=== PATIENT | female | born 1975 | race Caucasian/White ===

== ENCOUNTER 2017-01-20 03:33 | Emergency (ER) | payer SELFPAY ==
[2017-01-20] MEDS ORDERED: Ativan 1 MG PO ONE (04:06)
[2017-01-20] MEDS ORDERED: Ativan 1 MG ONE (04:11)
--- NOTE | 2017-01-20 04:15 | ERPHSYRPT ---
- History of Present Illness Time Seen by Provider: 01/20/17 04:00 Source: patient Exam Limitations: clinical condition Patient Subjective Stated Complaint: Pt sts hx of bipolar, has been having trouble with anxiety for the last few weeks. Sts anxiety attack has been going on x 4 hours tonight. Sts it is a "mild" one. Sts she wants to get it to stop before she has the urge to drink or "do something else" to get rest. Pt sts hx of overdosing. Pt sts has also been trying hemp oil to help. Pt denies SI/HI today. Triage Nursing Assessment: Pt alert, oriented, answers all questions appropriately. Skin p/w/d, resps non-labored. Pt ambulatory to tx room. Physician History: PATIENT WITH HISTORY OF BIPOLAR DISORDER COMPLAINS OF FEELINGS OF ANXIETY. HAS NO RELIEF WITH HER NEUROTIN. DENIES SUICIDAL OR HOMOCIDAL THOUGHT. DENIES STREET DRUG USE OR ALCOHOL. Timing/Duration: today Severity of Symptoms-Max: moderate Severity of Symptoms-Current: moderate Context related to: living circumstances Suicidal thoughts: other (DENIES THOUGHTS) Associated Symptoms: anxiety Previous symptoms: same symptoms as today Allergies/Adverse Reactions: influenza virus vaccine, specific [influenza virus vacc,specific] Allergy ( Severe, Verified 01/20/17 03:42) Swelling morphine Allergy (Severe, Verified 01/20/17 03:42) Tightness in Chest acetaminophen [From Darvocet-N] Allergy (Intermediate, Verified 01/20/17 03:42) Rash propoxyphene napsylate [From Darvocet-N] Allergy (Intermediate, Verified 03:42) Rash clarithromycin [From Biaxin] Adverse Reaction (Mild, Verified 01/20/17 03:42) Nausea Home Medications: Gabapentin [Neurontin] 600 mg PO TID 01/13/16 [History] Hydrochlorothiazide 25 mg [hydroDIURIL 25 MG] 25 mg PO DAILY 01/13/16 [ History] Lurasidone HCl [Latuda] 60 mg PO HS 01/13/16 [History] Levothyroxine Sodium 25 Mcg [Synthroid 25 Mcg] 50 mcg PO DAILY 07/05/16 [ History] Prazosin HCl [Minipress] 4 mg PO HS 07/05/16 [History] Oxycodone HCl/Acetaminophen [Percocet 10-325 mg Tablet] 1 each PO DAILY [History] Hx Tetanus, Diphtheria Vaccination/Date Given: No Hx Influenza Vaccination/Date Given: No Hx Pneumococcal Vaccination/Date Given: No Immunizations Up to Date: Yes - Past Medical History Pertinent Past Medical History: Yes Neurological History: No Pertinent History ENT History: No Pertinent History Cardiac History: Hypertension Respiratory History: No Pertinent History Endocrine Medical History: No Pertinent History Musculoskeletal History: No Pertinent History GI Medical History: Gallbladder Disease Psycho-Social History: Anxiety, Bipolar, Depression Female Reproductive Disorders: No Pertinent History Other Medical History: UTERINE ABLASION, BARIATRIC SURGERY-RUE AND Y, - Past Surgical History Past Surgical History: Yes Cardiac: No Pertinent History Respiratory: No Pertinent History Gastrointestinal: Cholecystectomy, Other Female Surgical History: Lumpectomy, Other Other Surgical History: UTERINE ABLASION, GASTRIC BYPASS-RUE AN Y. t&a - Social History Smoking Status: Current every day smoker How long have you smoked: 3 months Exposure to second hand smoke: No Alcohol Use: Socially Drug Use: none Patient Lives Alone: No - Female History Hx Last Menstrual Period: 2 weeks ago - Review of Systems Constitutional: No Fever, No Chills Eyes: No Symptoms Ears, Nose, & Throat: No Symptoms Respiratory: No Symptoms, No Cough, No Dyspnea Cardiac: No Symptoms, No Chest Pain, No Edema, No Syncope Abdominal/Gastrointestinal: No Symptoms, No Abdominal Pain, No Nausea, No Vomiting, No Diarrhea Genitourinary Symptoms: No Symptoms, No Dysuria Musculoskeletal: No Symptoms, No Back Pain, No Neck Pain Skin: No Symptoms, No Rash Neurological: No Dizziness, No Focal Weakness, No Sensory Changes Psychological: Anxiety Endocrine: No Symptoms All Other Systems: Reviewed and Negative - Nursing Vital Signs Nursing Vital Signs: Initial Vital Signs Pulse Rate 91 Respiratory Rate 16 Blood Pressure [Right Arm] 122/80 Pain Intensity 0 - Physical Exam General Appearance: no apparent distress Eyes, Ears, Nose, Throat Exam: normal ENT inspection, moist mucous membranes Neck Exam: normal inspection, non-tender, supple Respiratory Exam: normal breath sounds, lungs clear, No respiratory distress Cardiovascular Exam: regular rate/rhythm, No edema Gastrointestinal/Abdominal Exam: soft, No tenderness, No distention Extremities Exam: normal inspection, normal range of motion, No evidence of injury, No edema Peripheral Pulses: carotid (R): 2+, carotid (L): 2+, femoral (R): 2+, femoral (L ): 2+, dorsalis-pedis (R): 2+, dorsalis-pedis (L): 2+ Current Suicidality: denies suicide plan Neurological Exam: alert, calm, financial sales advisor II-XII nml as tested, oriented x 3 Behavior/Eye Contact/Speech: alert & cooperative, cooperative, good eye contact , normal speech Thoughts/Hallucinations: normal thought pattern, no apparent hallucination Skin Exam: normal color, warm, dry, No rash SpO2 Interpretation: normal SpO2: 99 Oxygen Delivery: Room Air Ordered Tests: Medication Summary Discontinued Medications Generic Name Dose Route Start Last Admin Trade Name Freq PRN Reason Stop Dose Admin Lorazepam 1 mg 01/20/17 04:06 Ativan 1 Mg PO 01/20/17 04:07 STAT ONE - Progress Progress: improved Progress Note: 01/20/17 04:17 PATIENT GIVEN ATIVAN 1MG ORALLY Counseled pt/family regarding: diagnosis, need for follow-up - Departure Time of Disposition: 04:30 Departure Disposition: Home Clinical Impression: ANXIETY Condition: Stable Critical Care Time: No Instructions: Anxiety -- Adult Additional Instructions: FOLLOWUP WITH YOUR FAMILY PHYSICIAN TODAY AND [facility] FOR COUNSELING. RETURN TO EMERGENCY FOR INCREASING ANXIETY. Prescriptions: Hydroxyzine HCl 25 mg [Atarax 25 mg] 25 mg PO Q6H PRN PRN #8 tablet PRN Reason: Anxiety
[2017-01-20 04:31] VITALS: BP 124/60; PULSE 90; O2SAT 96
== END 2017-01-20 04:30 | disposition home or self-care (01) ==
LOC: ED 03:33
DX: F41.9 Anxiety disorder, unspecified (principal); F31.9 Bipolar disorder, unspecified
CPT/HCPCS: 99283; A9270-GY

== ENCOUNTER 2017-02-27 18:29 | Emergency (ER) | payer OTHER ==
[2017-02-27] MEDS ORDERED: Sodium Chloride 0.9% 1000 ML 1,000 ML IV STA (18:53)
[2017-02-27] MEDS ORDERED: ANTIVERT 25 MG PO ONE (18:55)
--- NOTE | 2017-02-27 18:58 | ERPHSYRPT ---
- History of Present Illness Time Seen by Provider: 02/27/17 18:57 Source: patient Exam Limitations: no limitations Patient Subjective Stated Complaint: generalized weakness. lightheaded with position change. normal oral intake. denies n/v/d. problems with anxiety yesterday but none today. denies injury. skin warm and dry Triage Nursing Assessment: see above Physician History: 42 y/o female with history of anxiety, substance abuse and QT prolongation comes to the ER with complaints of weakness and dizziness for the past 2 days. Pt says that she gets dizzy when she gets up from a seated position. Pt has not passed out. Pt also admits to having vertigo with ringing of the ears. Pt mentions having similar symptoms in the past and was diagnosed with QT prolongation. Pt also admits to some upper chest pain and shortness of breath that occurred last night but she attributed it to her anxiety. Timing/Duration: yesterday Modifying Factors: Improves With: movement Associated Symptoms: shortness of breath, chest pain Allergies/Adverse Reactions: influenza virus vaccine, specific [influenza virus vacc,specific] Allergy ( Severe, Verified 02/27/17 18:42) Swelling morphine Allergy (Severe, Verified 02/27/17 18:42) Tightness in Chest acetaminophen [From Darvocet-N] Allergy (Intermediate, Verified 02/27/17 18:42) Rash propoxyphene napsylate [From Darvocet-N] Allergy (Intermediate, Verified 18:42) Rash clarithromycin [From Biaxin] Adverse Reaction (Mild, Verified 02/27/17 18:42) Nausea Home Medications: Gabapentin [Neurontin] 600 mg PO TID 01/13/16 [History] Hydrochlorothiazide 25 mg [hydroDIURIL 25 MG] 25 mg PO DAILY 01/13/16 [ History] Lurasidone HCl [Latuda] 60 mg PO HS 01/13/16 [History] Levothyroxine Sodium 25 Mcg [Synthroid 25 Mcg] 50 mcg PO DAILY 07/05/16 [ History] Prazosin HCl [Minipress] 4 mg PO HS 07/05/16 [History] Multivitamin [Multivitamins] 2 each PO DAILY 02/27/17 [History] Mv,Iron,Min/Folic Acid/Biotin [Hair, Skin & Nails Softgel] 3 tab PO DAILY [History] Hx Tetanus, Diphtheria Vaccination/Date Given: Yes Hx Influenza Vaccination/Date Given: No Hx Pneumococcal Vaccination/Date Given: No Immunizations Up to Date: Yes - Review of Systems Constitutional: Weakness, No Fever, No Chills Eyes: No Symptoms Ears, Nose, & Throat: No Symptoms Respiratory: Dyspnea, No Cough Cardiac: Chest Pain, No Edema, No Syncope Abdominal/Gastrointestinal: No Abdominal Pain, No Nausea, No Vomiting, No Diarrhea Genitourinary Symptoms: Frequency, No Dysuria Musculoskeletal: No Back Pain, No Neck Pain Skin: No Rash Neurological: No Dizziness, No Focal Weakness, No Sensory Changes Psychological: No Symptoms Endocrine: No Symptoms All Other Systems: Reviewed and Negative - Past Medical History Pertinent Past Medical History: Yes Neurological History: No Pertinent History ENT History: No Pertinent History Cardiac History: Hypertension Respiratory History: No Pertinent History Endocrine Medical History: No Pertinent History Musculoskeletal History: No Pertinent History GI Medical History: Gallbladder Disease Psycho-Social History: Anxiety, Bipolar, Depression Female Reproductive Disorders: No Pertinent History Other Medical History: UTERINE ABLASION, BARIATRIC SURGERY-RUE AND Y,. past hx of prolonged QT interval - Past Surgical History Past Surgical History: Yes Cardiac: No Pertinent History Respiratory: No Pertinent History Gastrointestinal: Cholecystectomy, Other Female Surgical History: Lumpectomy, Other Other Surgical History: UTERINE ABLASION, GASTRIC BYPASS-RUE AN Y. t&a - Social History Smoking Status: Current every day smoker How long have you smoked: 3 months Exposure to second hand smoke: No Alcohol Use: Socially Drug Use: none Patient Lives Alone: No - Female History Hx Last Menstrual Period: 3 weeks - Nursing Vital Signs Nursing Vital Signs: Initial Vital Signs Temperature 97.7 F 02/27/17 18:35 Pulse Rate 80 02/27/17 18:35 Respiratory Rate 18 02/27/17 18:35 Blood Pressure 112/69 02/27/17 18:35 O2 Sat by Pulse Oximetry 96 02/27/17 18:35 Pain Scale Pain Intensity 0 - Physical Exam General Appearance: no apparent distress, alert Eye Exam: PERRL/EOMI, eyes nml inspection Ears, Nose, Throat Exam: normal ENT inspection, TMs normal, pharynx normal, moist mucous membranes Neck Exam: normal inspection, non-tender, supple, full range of motion Respiratory Exam: normal breath sounds, lungs clear, No respiratory distress Cardiovascular Exam: regular rate/rhythm, normal heart sounds, normal peripheral pulses Gastrointestinal/Abdomen Exam: soft, normal bowel sounds, No tenderness, No mass Back Exam: normal inspection, normal range of motion, No CVA tenderness, No vertebral tenderness Extremity Exam: normal inspection, normal range of motion, pelvis stable Neurologic Exam: alert, oriented x 3, cooperative, normal mood/affect, nml cerebellar function, nml station & gait, sensation nml, No motor deficits Skin Exam: normal color, warm, dry, No rash Lymphatic Exam: No adenopathy SpO2: 96 Oxygen Delivery: Room Air Ordered Tests: Active Orders 24 hr Category Date Time Status Accucheck STAT Care 02/27/17 18:53 Active Auto Mechanic STAT Care 02/27/17 18:53 Active EKG-ER Only STAT Care 02/27/17 18:58 Active Orthostatic Vital Signs STAT Care 02/27/17 18:44 Active CHEST 2 VIEWS (PA AND LAT) Stat Exams 02/27/17 18:54 Taken CBC W DIFF Stat Lab 02/27/17 18:57 Completed CMP Stat Lab 02/27/17 18:57 Completed CULTURE,URINE Stat Lab 02/27/17 18:57 Received ETHYL ALCOHOL Stat Lab 02/27/17 18:57 Completed HCG QUALITATIVE,SERUM Stat Lab 02/27/17 18:57 Completed MAGNESIUM Stat Lab 02/27/17 18:57 Completed TROPONIN Q3H Lab 02/27/17 18:57 Completed TROPONIN Q3H Lab 02/27/17 22:00 Ordered TROPONIN Q3H Lab 02/28/17 01:00 Ordered TROPONIN Q3H Lab 02/28/17 04:00 Ordered TROPONIN Q3H Lab 02/28/17 07:00 Ordered UA W/ MICROSCOPIC Stat Lab 02/27/17 18:57 Completed Urine Triage Profile Stat Lab 02/27/17 18:57 Completed Medication Summary Discontinued Medications Generic Name Dose Route Start Last Admin Trade Name Freq PRN Reason Stop Dose Admin Sodium Chloride 1,000 mls @ 999 mls/hr 02/27/17 18:53 02/27/17 19:02 Sodium Chloride 0.9% 1000 Ml IV 02/27/17 19:53 999 mls/hr .Q1H1M STA Administration Sodium Chloride Confirm 02/27/17 19:00 Sodium Chloride 0.9% 1000 Ml Administered 02/27/17 19:01 Dose 1,000 mls @ .ROUTE .STK-MED ONE Meclizine HCl 25 mg 02/27/17 18:55 02/27/17 19:02 Antivert 25 Mg PO 02/27/17 18:56 25 mg STAT ONE Administration Meclizine HCl Confirm 02/27/17 19:00 Antivert 25 Mg Administered 02/27/17 19:01 Dose 25 mg .ROUTE .STK-MED ONE Trimethoprim/Sulfamethoxazole 1 tab 02/27/17 20:01 02/27/17 20:05 Bactrim Ds Tablet PO 02/27/17 20:02 1 tab STAT STA Administration Trimethoprim/Sulfamethoxazole Confirm 02/27/17 20:04 Bactrim Ds Tablet Administered 02/27/17 20:05 Dose 1 tab PO .STK-MED ONE Lab/Rad Data: Laboratory Result Diagrams 02/27/17 18:57 02/27/17 18:57 Laboratory Results 02/27/17 02/27/17 02/27/17 Range/Units 18:57 18:57 18:57 WBC (4.0-10.5) K/mm3 RBC (4.1-5.4) M/mm3 Hgb (12.0-16.0) gm/dl Hct (35-47) % MCV (78-100) fl MCH (26-32) pg MCHC (32-36) g/dl RDW (11.5-14.0) % Plt Count (150-450) K/mm3 MPV (6-9.5) fl Gran % (36.0-66.0) % Lymphocytes % (24.0-44.0) % Monocytes % (0.0-12.0) % Eosinophils % (0.00-5.0) % Basophils % (0.0-0.4) % Basophils # (0-0.4) Sodium (136-145) mEq/L Potassium (3.5-5.1) mEq/L Chloride (98-107) mEq/L Carbon Dioxide (21-32) mEq/L Anion Gap (5-15) MEQ/L BUN (9-20) mg/dL Creatinine (0.55-1.30) mg/dl Estimated GFR ML/MIN Glucose (70-110) MG/DL Calcium (8.5-10.1) mg/dL Magnesium (1.8-2.4) mg/dL Total Bilirubin (0.2-1.0) mg/dL AST (15-37) U/L ALT (12-78) U/L Alkaline Phosphatase (46-116) U/L Troponin I < 0.017 (0.000-0.056) ng/ml Serum Total Protein (6.4-8.2) gm/dL Albumin (3.4-5.0) g/dL Serum , Qual (Negative) Ur Collection Type CLEAN CATCH Urine Color YELLOW (YELLOW) Urine Appearance CLOUDY (CLEAR) Urine pH 5.0 (5-6) Ur Specific Broadbent 1.020 (1.005-1.025) Urine Protein NEGATIVE (Negative) Urine Ketones NEGATIVE (NEGATIVE) Urine Blood TRACE NON-HEM (0-5) Dwayne/ul Urine Nitrite POSITIVE (NEGATIVE) Urine Bilirubin NEGATIVE (NEGATIVE) Urine Urobilinogen NORMAL (0-1) mg/dL Ur Leukocyte Esterase 2+ (NEGATIVE) Urine Microscopic WBC 5-10 (0-5) /HPF Ur Epithelial Cells MODERATE (FEW) /HPF Urine Bacteria MANY (NEGATIVE) /HPF Urine Mucus SLIGHT (NEGATIVE) /HPF Urine Glucose NEGATIVE (NEGATIVE) mg/dL Urine Opiates Level NEG. (NEGATIVE) Ur Methadone NEG. (NEGATIVE) Urine Barbiturates NEG. (NEGATIVE) Ur Phencyclidine (PCP) NEG. (NEGATIVE) Urine Amphetamine NEG. (NEGATIVE) U Benzodiazepine Level NEG. (NEGATIVE) Urine Cocaine NEG. (NEGATIVE) Urine Marijuana (THC) NEG. (NEGATIVE) Ethyl Alcohol (0.00-0.01) % Specimen Received [id number] 02/27/17 02/27/17 02/27/17 Range/Units 18:57 18:57 18:57 WBC 6.7 (4.0-10.5) K/mm3 RBC 4.12 (4.1-5.4) M/mm3 Hgb 13.0 (12.0-16.0) gm/dl Hct 38.9 (35-47) % MCV 94.4 (78-100) fl MCH 31.6 (26-32) pg MCHC 33.4 (32-36) g/dl RDW 13.4 (11.5-14.0) % Plt Count 237 (150-450) K/mm3 MPV 10.2 H (6-9.5) fl Gran % 55.0 (36.0-66.0) % Lymphocytes % 33.7 (24.0-44.0) % Monocytes % 8.8 (0.0-12.0) % Eosinophils % 2.1 (0.00-5.0) % Basophils % 0.4 (0.0-0.4) % Basophils # 0.03 (0-0.4) Sodium 140 (136-145) mEq/L Potassium 3.6 (3.5-5.1) mEq/L Chloride 105 (98-107) mEq/L Carbon Dioxide 23.2 (21-32) mEq/L Anion Gap 15.8 H (5-15) MEQ/L BUN 13 (9-20) mg/dL Creatinine 0.87 (0.55-1.30) mg/dl Estimated GFR > 60 ML/MIN Glucose 132 H (70-110) MG/DL Calcium 8.8 (8.5-10.1) mg/dL Magnesium 2.0 (1.8-2.4) mg/dL Total Bilirubin 0.30 (0.2-1.0) mg/dL AST 11 L (15-37) U/L ALT 17 (12-78) U/L Alkaline Phosphatase 78 (46-116) U/L Troponin I (0.000-0.056) ng/ml Serum Total Protein 7.3 (6.4-8.2) gm/dL Albumin 4.0 (3.4-5.0) g/dL Serum , Qual NEGATIVE (Negative) Ur Collection Type Urine Color (YELLOW) Urine Appearance (CLEAR) Urine pH (5-6) Ur Specific Broadbent (1.005-1.025) Urine Protein (Negative) Urine Ketones (NEGATIVE) Urine Blood (0-5) Dwayen/ul Urine Nitrite (NEGATIVE) Urine Bilirubin (NEGATIVE) Urine Urobilinogen (0-1) mg/dL Ur Leukocyte Esterase (NEGATIVE) Urine Microscopic WBC (0-5) /HPF Ur Epithelial Cells (FEW) /HPF Urine Bacteria (NEGATIVE) /HPF Urine Mucus (NEGATIVE) /HPF Urine Glucose (NEGATIVE) mg/dL Urine Opiates Level (NEGATIVE) Ur Methadone (NEGATIVE) Urine Barbiturates (NEGATIVE) Ur Phencyclidine (PCP) (NEGATIVE) Urine Amphetamine (NEGATIVE) U Benzodiazepine Level (NEGATIVE) Urine Cocaine (NEGATIVE) Urine Marijuana (THC) (NEGATIVE) Ethyl Alcohol < 0.010 (0.00-0.01) % Specimen Received - Progress Progress: improved Progress Note: 02/27/17 20:23 Pt feels better after receiving NS fluids and meclizine. The cardiac w/u, including QT is within normal limits. Pt has a UTI and will be treated with 5 days of bactrim - Departure Time of Disposition: 20:24 Departure Disposition: Home Clinical Impression: UTI (urinary tract infection) Qualifiers: Urinary tract infection type: acute cystitis Hematuria presence: without hematuria Qualified Code(s): N30.00 - Acute cystitis without hematuria Condition: Stable Critical Care Time: No Referrals: ANDREI PETE [Primary Care Provider] - Instructions: Urinary Tract Infection (UTI) Additional Instructions: Follow up with your primary care doctor if there is no improvement. Prescriptions: Sulfamethoxazole/Trimethoprim [Bactrim Ds Tablet] 1 each PO BID #9 tablet
[2017-02-27] MEDS ORDERED: Sodium Chloride 0.9% 1000 ML 1,000 ML ONE (19:00)
[2017-02-27] MEDS ORDERED: ANTIVERT 25 MG ONE (19:00)
[2017-02-27 19:02] LABS: BASOPHIL % 0.4 % (0.0-0.4); Eosinophil % 2.1 % (0.00-5.0); Lymphocytes % 33.7 % (24.0-44.0); Mean Cell Volume 94.4 fl (78-100); Mean Corpuscular Hemoglobin 31.6 pg (26-32); Mean Platelet Volume 10.2 fl (6-9.5); Monocytes % 8.8 % (0.0-12.0); Platelet Count 237 K/mm3 (150-450); Red Blood Count 4.12 M/mm3 (4.1-5.4); Red Cell Distribution Width 13.4 % (11.5-14.0); White Blood Count 6.7 K/mm3 (4.0-10.5)
[2017-02-27 19:30] LABS: ALKALINE PHOSPHATASE 78 U/L (46-116); ANION GAP 15.8 MEQ/L (5-15); BLOOD UREA NITROGEN 13 mg/dL (9-20); CHLORIDE 105 mEq/L (98-107); Carbon Dioxide 23.2 mEq/L (21-32); ETHYL ALCOHOL < 0.010 % (0.00-0.01); Glucose 132 MG/DL (70-110); Potassium 3.6 mEq/L (3.5-5.1); SGOT/AST 11 U/L (15-37); SODIUM 140 mEq/L (136-145); Total Protein 7.3 gm/dL (6.4-8.2)
[2017-02-27 19:37] LABS: Collection Type CLEAN CATCH; Glucose NEGATIVE (NEGATIVE); Leukocyte Esterase 2+ (NEGATIVE)
[2017-02-27 19:38] LABS: Bacteria MANY /HPF (NEGATIVE); Bilirubin NEGATIVE (NEGATIVE); Blood TRACE NON-HEM Ery/ul (0-5); COMPLETE URINE MICROSCOPIC? YES; Epithelial Cells MODERATE /HPF (FEW); Mucus SLIGHT /HPF (NEGATIVE)
[2017-02-27 19:39] LABS: ADD URINE CULTURE? NO (NO)
[2017-02-27 19:42] LABS: SGPT/ALT 17 U/L (12-78)
[2017-02-27] MEDS ORDERED: BACTRIM DS TABLET PO STA (20:01)
[2017-02-27] MEDS ORDERED: BACTRIM DS TABLET PO ONE (20:04)
[2017-02-27 20:34] VITALS: BP 95/69; PULSE 66; O2SAT 99
--- NOTE | 2017-02-28 08:35 | XRAY ---
Indication: Dizziness. Comparison: None AP/lateral chest demonstrates normal heart, lungs, and bony thorax with incidental scattered calcified granulomas.
== END 2017-02-27 20:34 | disposition home or self-care (01) ==
LOC: ED 18:29
DX: N30.00 Acute cystitis without hematuria (principal); R42 Dizziness and giddiness; R53.1 Weakness; Z87.898 Personal history of other specified conditions; R06.02 Shortness of breath; R07.89 Other chest pain; H93.13 Tinnitus, bilateral; Z79.899 Other long term (current) drug therapy
CPT/HCPCS: 36415; 71020; 80053; 80307; 81000; 82962; 83735; 84484; 84703; 85025; 87077; 87086; 87186; 93005; 93041; 96360; 96361; 99284; G0481; A9270-GY

== ENCOUNTER 2018-01-01 12:02 | Emergency (ER) | payer OTHER ==
[2018-01-01 12:15] VITALS: BP 143/98; O2SAT 93
--- NOTE | 2018-01-01 12:47 | ERPHSYRPT ---
- History of Present Illness Time Seen by Provider: 01/01/18 12:39 Source: patient Exam Limitations: no limitations Patient Subjective Stated Complaint: Anxiety beginning yesterday and contiuing today. Triage Nursing Assessment: Pt presents to the ED with complaints of anxiety, stiffness, and "shaky" beginning yesterday and contiuing today. Pt states hx of anxiety. Pt states there is nothing that makes pain better or worse. Pt denies other complaints. No distress noted, skin PWD. Physician History: The patient is a 42-year-old female with her significant other complaining of anxiety since yesterday. She feels quite anxious and "shaky". She does not have any breakthrough medicines for treatment of anxiety. She does take gabapentin for anxiety per patient report. She has taken Xanax and Ativan in the past without problems. She requests just Ativan and she would like to go home. Her past medical history significant for anxiety. Timing/Duration: yesterday Severity of Symptoms-Max: moderate Severity of Symptoms-Current: moderate Associated Symptoms: anxiety Previous symptoms: same symptoms as today Allergies/Adverse Reactions: influenza virus vaccine, specific [influenza virus vacc,specific] Allergy ( Severe, Verified 02/27/17 18:42) Swelling morphine Allergy (Severe, Verified 02/27/17 18:42) Tightness in Chest acetaminophen [From Darvocet-N] Allergy (Intermediate, Verified 02/27/17 18:42) Rash propoxyphene napsylate [From Darvocet-N] Allergy (Intermediate, Verified 18:42) Rash clarithromycin [From Biaxin] Adverse Reaction (Mild, Verified 02/27/17 18:42) Nausea Home Medications: Gabapentin [Neurontin] 600 mg PO TID 01/13/16 [History] Hydrochlorothiazide 25 mg [hydroDIURIL 25 MG] 25 mg PO DAILY 01/13/16 [ History] Lurasidone HCl [Latuda] 60 mg PO HS 01/13/16 [History] Multivitamin [Multivitamins] 2 each PO DAILY 02/27/17 [History] Mv,Iron,Mins/Folic Acid/Biotin [Hair, Skin & Nails Softgel] 3 tab PO DAILY 02/27 [History] Hx Tetanus, Diphtheria Vaccination/Date Given: Yes Hx Influenza Vaccination/Date Given: No Hx Pneumococcal Vaccination/Date Given: No Immunizations Up to Date: No - Past Medical History Pertinent Past Medical History: Yes Neurological History: No Pertinent History ENT History: No Pertinent History Cardiac History: Hypertension Respiratory History: No Pertinent History Endocrine Medical History: No Pertinent History Musculoskeletal History: No Pertinent History GI Medical History: Gallbladder Disease Psycho-Social History: Anxiety, Bipolar, Depression Female Reproductive Disorders: No Pertinent History Other Medical History: UTERINE ABLASION, BARIATRIC SURGERY-RUE AND Y,. past hx of prolonged QT interval - Past Surgical History Past Surgical History: Yes Cardiac: No Pertinent History Respiratory: No Pertinent History Gastrointestinal: Cholecystectomy, Other Female Surgical History: Lumpectomy, Other Other Surgical History: UTERINE ABLASION, GASTRIC BYPASS-RUE AN Y. t&a - Social History Smoking Status: Current every day smoker How long have you smoked: 1 year Exposure to second hand smoke: Yes Alcohol Use: Socially Drug Use: none Patient Lives Alone: No - Female History Hx Last Menstrual Period: 12/24/2017 Hx Now: No - Review of Systems Constitutional: No Fever, No Chills Eyes: No Symptoms Ears, Nose, & Throat: No Symptoms Respiratory: No Cough, No Dyspnea Cardiac: No Chest Pain, No Edema, No Syncope Abdominal/Gastrointestinal: No Abdominal Pain, No Nausea, No Vomiting, No Diarrhea Genitourinary Symptoms: No Dysuria Musculoskeletal: No Back Pain, No Neck Pain Skin: No Rash Neurological: No Dizziness, No Focal Weakness, No Sensory Changes Psychological: Anxiety Endocrine: No Symptoms Hematologic/Lymphatic: No Symptoms Immunological/Allergic: No Symptoms All Other Systems: Reviewed and Negative - Nursing Vital Signs Nursing Vital Signs: Initial Vital Signs Temperature 98.6 F 01/01/18 12:10 Pulse Rate 71 01/01/18 12:10 Respiratory Rate 16 01/01/18 12:10 Blood Pressure 143/98 01/01/18 12:10 O2 Sat by Pulse Oximetry 93 L 01/01/18 12:10 Pain Scale Pain Intensity 0 - Physical Exam General Appearance: moderate distress, anxiety Eyes, Ears, Nose, Throat Exam: normal ENT inspection, moist mucous membranes Neck Exam: normal inspection, non-tender, supple Respiratory Exam: normal breath sounds, lungs clear, No respiratory distress Cardiovascular Exam: regular rate/rhythm, No edema Gastrointestinal/Abdominal Exam: soft, No tenderness, No distention Extremities Exam: normal inspection, normal range of motion, No evidence of injury, No edema Current Suicidality: denies suicide plan Neurological Exam: alert, plasma center nurse II-XII nml as tested, oriented x 3 Appearance: appropriate appearance Behavior/Eye Contact/Speech: alert & cooperative Thoughts/Hallucinations: normal thought pattern Skin Exam: normal color, warm, dry, No rash SpO2 Interpretation: normal SpO2: 93 Oxygen Delivery: Room Air - Progress Progress: improved Counseled pt/family regarding: diagnosis, need for follow-up - Departure Time of Disposition: 12:55 Departure Disposition: Home Clinical Impression: Anxiety Condition: Stable Critical Care Time: No Referrals: ANDREI PETE [Primary Care Provider] - Additional Instructions: You have anxiety. You were given Ativan 2 mg by I him in the ER. Take Ativan 0.5 mg orally every 8 hours as needed. Follow-up with your primary health provider on Thursday. Prescriptions: Lorazepam [Ativan] 0.5 mg PO Q8H PRN PRN #4 tablet PRN Reason: Anxiety
[2018-01-01] MEDS ORDERED: Ativan 2 MG/1 ML VIAL IM ONE (12:49)
[2018-01-01] MEDS ORDERED: Ativan 2 MG/1 ML VIAL ONE (12:52)
[2018-01-01 12:59] VITALS: PULSE 67
== END 2018-01-01 13:12 | disposition home or self-care (01) ==
LOC: ED 12:02
DX: F41.9 Anxiety disorder, unspecified (principal); Z79.899 Other long term (current) drug therapy
CPT/HCPCS: 93005; 96372; 99283; J2060

== ENCOUNTER 2018-04-05 09:02 | Emergency (ER) | payer OTHER ==
[2018-04-05] MEDS ORDERED: solu-MEDROL 125 MG (09:55)
[2018-04-05] MEDS ORDERED: Rocephin 1000 MG INJ (09:55)
[2018-04-05] MEDS ORDERED: XYLOCAINE 1% HCL 20 ML MDV (09:55)
[2018-04-05] MEDS: solu-MEDROL 125 MG IM (10:08)
[2018-04-05] MEDS: Rocephin 1000 MG INJ IM (10:08)
== END 2018-04-05 10:49 | disposition home or self-care (01) ==
LOC: ED 09:02
CPT/HCPCS: 93005; 96372; J0696; J2930

== ENCOUNTER 2018-06-28 15:40 | Emergency (ER) | payer OTHER ==
[2018-06-28] MEDS ORDERED: Phenergan 25 MG INJ ONE (16:04)
[2018-06-28] MEDS ORDERED: Sodium Chloride 0.9% 1000 ML 1,000 ML ONE ×2 (16:04→17:27)
[2018-06-28] MEDS ORDERED: SUBLIMAZE 100 MCG/2 ML ONE ×4 (16:04→19:25)
--- NOTE | 2018-06-28 16:04 | ERPHSYRPT ---
- History of Present Illness Time Seen by Provider: 06/28/18 15:52 Historian: patient Exam Limitations: no limitations Patient Subjective Stated Complaint: pt here for abd pain, n/v/d since thursday. no eating or drinking well Triage Nursing Assessment: pt alert, resp easy, skin w/d/p. abd soft, no edema, pain difuse Physician History: 43-year-old white female with history of high blood pressure gallbladder disease , anxiety, bipolar disorder, bariatric surgery.. Patient arrives with complaint of nausea and vomiting since Thursday 3 days ago, she states she's had diffuse abdominal pain since last night. No fever no urinary symptoms no cough no chest pain. Past medical history includes high blood pressure, gallbladder disease, anxiety , bipolar disorder, uterine ablation, bariatric surgery, Mara-en-Y, prolonged QT interval. Past surgical history includes hysterectomy, lumpectomy, uterine ablation, gastric bypass, Mara-en-Y, tonsillectomy and adenoidectomy Timing/Duration: day(s) (3 days) Activities at Onset: none Quality: cramping Abdominal Pain Onset Location: generalized abdomen Pain Radiation: no radiation Severity of Pain-Max: moderate Severity of Pain-Current: moderate Modifying Factors: Improves With: vomiting. Worsens With: analgesics, antacids , breathing, coughing, defecating, eating, exercise, lying down, movement, palpation, rest, urinating, position, walking Associated Symptoms: diarrhea, nausea, vomiting, No back, No chest pain, No diaphoresis, No fever/chills, No fatigue, No headache, No heartburn, No loss of appetite, No neck pain, No rash, No shortness of breath, No syncope, No weakness Previous symptoms: same symptoms as today Allergies/Adverse Reactions: influenza virus vaccine, specific [influenza virus vacc,specific] Allergy ( Severe, Verified 06/28/18 15:43) Swelling morphine Allergy (Severe, Verified 06/28/18 15:43) Tightness in Chest propoxyphene napsylate [From Darvocet-N] Allergy (Intermediate, Verified 15:43) Rash clarithromycin [From Biaxin] Adverse Reaction (Mild, Verified 06/28/18 15:43) Nausea Home Medications: Gabapentin [Neurontin] 600 mg PO TID 01/13/16 [History] Hydrochlorothiazide 25 mg [hydroDIURIL 25 MG] 25 mg PO DAILY 01/13/16 [ History] Lurasidone HCl [Latuda] 60 mg PO HS 01/13/16 [History] Multivitamin [Multivitamins] 2 each PO DAILY 02/27/17 [History] Mv,Iron,Mins/Folic Acid/Biotin [Hair, Skin & Nails Softgel] 3 tab PO DAILY 02/27 [History] Hx Tetanus, Diphtheria Vaccination/Date Given: Yes Hx Influenza Vaccination/Date Given: No Hx Pneumococcal Vaccination/Date Given: No Immunizations Up to Date: Yes - Review of Systems Constitutional: No Fever, No Chills Eyes: No Symptoms Ears, Nose, & Throat: No Symptoms Respiratory: No Symptoms Cardiac: No Chest Pain, No Edema, No Syncope Abdominal/Gastrointestinal: Abdominal Pain, Nausea, Vomiting, Diarrhea, No Constipation, No Hematemesis, No Hematochezia, No Melena, No Appetite Changes Genitourinary Symptoms: No Dysuria Musculoskeletal: No Back Pain, No Neck Pain Skin: No Rash Neurological: No Dizziness, No Focal Weakness, No Sensory Changes Psychological: No Symptoms Endocrine: No Symptoms All Other Systems: Reviewed and Negative - Past Medical History Pertinent Past Medical History: Yes Neurological History: No Pertinent History ENT History: No Pertinent History Cardiac History: Hypertension Respiratory History: No Pertinent History Endocrine Medical History: No Pertinent History Musculoskeletal History: No Pertinent History GI Medical History: Gallbladder Disease Psycho-Social History: Anxiety, Bipolar, Depression Female Reproductive Disorders: No Pertinent History Other Medical History: UTERINE ABLASION, BARIATRIC SURGERY-RUE AND Y,. past hx of prolonged QT interval - Past Surgical History Past Surgical History: Yes Cardiac: No Pertinent History Respiratory: No Pertinent History Gastrointestinal: Cholecystectomy, Other Female Surgical History: Hysterectomy, Lumpectomy, Other Other Surgical History: UTERINE ABLASION, GASTRIC BYPASS-RUE AN Y. t&a - Social History Smoking Status: Current every day smoker How long have you smoked: 1 year Exposure to second hand smoke: Yes Alcohol Use: Socially Drug Use: none Patient Lives Alone: No - Female History Hx Last Menstrual Period: hyster Hx Now: No - Nursing Vital Signs Nursing Vital Signs: Initial Vital Signs Pulse Rate 82 06/28/18 15:45 Respiratory Rate 18 06/28/18 15:45 Blood Pressure 160/95 06/28/18 15:45 O2 Sat by Pulse Oximetry 100 06/28/18 15:45 Pain Scale Pain Intensity 4 - Physical Exam General Appearance: mild distress, other (well-developed white female, alert oriented 3) Eye Exam: PERRL/EOMI, eyes nml inspection Ears, Nose, Throat Exam: normal ENT inspection, pharynx normal, moist mucous membranes Neck Exam: normal inspection, non-tender, supple, full range of motion Respiratory Exam: normal breath sounds, lungs clear, No respiratory distress Cardiovascular Exam: regular rate/rhythm, normal heart sounds, normal peripheral pulses, capillary refill <2 sec, No murmur Gastrointestinal/Abdomen Exam: soft, normal bowel sounds, tenderness (diffuse abdominal tenderness), No mass, No pulsatile mass, No rebound Back Exam: normal inspection, normal range of motion, No CVA tenderness, No vertebral tenderness Extremity Exam: normal inspection, normal range of motion, pelvis stable Neurologic Exam: alert, oriented x 3, cooperative, print color operator II-XII nml as tested, normal mood/affect, nml cerebellar function, sensation nml, No motor deficits Skin Exam: normal color, warm, dry SpO2 Interpretation: normal (100%) SpO2: 100 Oxygen Delivery: Room Air - Course Nursing assessment & vital signs reviewed: Yes EKG Interpreted by Me: RATE (72 bpm), Sinus Rhythm, Left [place] Deviation, Other ( EKG: Sinus rhythm, 72 bpm, left axis devia nonspecific ST and T-wave abnormalities, no acute changes compare April 05, 2018) - CT Exams Abdomen/Pelvis CT Interpretation: Tele-radiologist Report (CT abdomen and pelvis: Impression 1 CT findings most concerning for small bowel enteritis, there are postoperative changes from prior gastric bypa. Small bowel wall thickening, and mild hyperemia.) Ordered Tests: Active Orders 24 hr Category Date Time Status EKG-ER Only STAT Care 06/28/18 18:02 Active IV Insertion STAT Care 06/28/18 15:57 Active ABDOMEN AND PELVIS W CONTRAST [CT] Stat Exams 06/28/18 16:31 Taken AMYLASE Stat Lab 06/28/18 16:09 Completed CBC W DIFF Stat Lab 06/28/18 16:09 Completed CMP Stat Lab 06/28/18 16:09 Completed CULTURE,URINE Stat Lab 06/28/18 17:31 Received LIPASE Stat Lab 06/28/18 16:09 Completed UA W/RFX UR CULTURE Stat Lab 06/28/18 17:31 Completed Urine Triage Profile Stat Lab 06/28/18 17:31 Completed Medication Summary Generic Name Dose Route Start Last Admin Trade Name Riley PRN Reason Stop Dose Admin Sodium Chloride 1,000 mls @ 200 mls/hr 06/28/18 17:30 06/28/18 17:28 Sodium Chloride 0.9% 1000 Ml IV 07/28/18 17:29 200 mls/hr .Q5H ARELIS Administration Discontinued Medications Generic Name Dose Route Start Last Admin Trade Name Riley PRN Reason Stop Dose Admin Fentanyl Citrate 100 mcg 06/28/18 15:57 06/28/18 16:07 Sublimaze 100 Mcg/2 Ml IV 06/28/18 15:58 100 mcg STAT ONE Administration Fentanyl Citrate Confirm 06/28/18 16:04 Sublimaze 100 Mcg/2 Ml Administered 06/28/18 16:05 Dose 100 mcg .ROUTE .STK-MED ONE Fentanyl Citrate 50 mcg 06/28/18 17:24 06/28/18 17:28 Sublimaze 100 Mcg/2 Ml IV 06/28/18 17:25 50 mcg STAT ONE Administration Fentanyl Citrate Confirm 06/28/18 17:26 Sublimaze 100 Mcg/2 Ml Administered 06/28/18 17:27 Dose 100 mcg .ROUTE .STK-MED ONE Fentanyl Citrate 50 mcg 06/28/18 18:11 06/28/18 18:16 Sublimaze 100 Mcg/2 Ml IV 06/28/18 18:12 50 mcg STAT ONE Administration Fentanyl Citrate Confirm 06/28/18 18:13 Sublimaze 100 Mcg/2 Ml Administered 06/28/18 18:14 Dose 100 mcg .ROUTE .STK-MED ONE Sodium Chloride 1,000 mls @ 999 mls/hr 06/28/18 15:57 06/28/18 16:07 Sodium Chloride 0.9% 1000 Ml IV 06/28/18 16:57 999 mls/hr .Q1H1M STA Administration Sodium Chloride Confirm 06/28/18 16:04 Sodium Chloride 0.9% 1000 Ml Administered 06/28/18 16:05 Dose 1,000 mls @ ud .ROUTE .STK-MED ONE Ondansetron HCl 4 mg 06/28/18 18:11 06/28/18 18:16 Zofran 4 Mg/2 Ml Vial IV 06/28/18 18:12 4 mg STAT ONE Administration Ondansetron HCl Confirm 06/28/18 18:14 Zofran 4 Mg/2 Ml Vial Administered 06/28/18 18:15 Dose 4 mg .ROUTE .STK-MED ONE Promethazine HCl 12.5 mg 06/28/18 15:57 06/28/18 16:07 Phenergan 25 Mg Inj IV 06/28/18 15:58 12.5 mg STAT ONE Administration Promethazine HCl Confirm 06/28/18 16:04 Phenergan 25 Mg Inj Administered 06/28/18 16:05 Dose 25 mg .ROUTE .[facility] ONE Lab/Rad Data: Laboratory Result Diagrams 06/28/18 16:09 06/28/18 16:09 Laboratory Results 06/28/18 06/28/18 06/28/18 Range/Units 17:31 17:31 16:09 WBC (4.0-10.5) K/mm3 RBC (4.1-5.4) M/mm3 Hgb (12.0-16.0) gm/dl Hct (35-47) % MCV (78-100) fl MCH (26-32) pg MCHC (32-36) g/dl RDW (11.5-14.0) % Plt Count (150-450) K/mm3 MPV (6-9.5) fl Gran % (36.0-66.0) % Eos # (Auto) (0-0.5) Absolute Lymphs (auto) (1.0-4.6) Absolute Monos (auto) (0.0-1.3) Lymphocytes % (24.0-44.0) % Monocytes % (0.0-12.0) % Eosinophils % (0.00-5.0) % Basophils % (0.0-0.4) % Absolute Granulocytes (1.4-6.9) Basophils # (0-0.4) Sodium 139 (137-145) mmol/L Potassium 3.3 L (3.5-5.1) mmol/L Chloride 102 (98-107) mmol/L Carbon Dioxide 23 (22-30) mmol/L Anion Gap 16.9 H (5-15) MEQ/L BUN 22 H (7-17) mg/dL Creatinine 0.64 (0.52-1.04) mg/dL Estimated GFR > 60.0 ML/MIN Glucose 122 H (74-106) mg/dL Calcium 9.0 (8.4-10.2) mg/dL Total Bilirubin 0.50 (0.2-1.3) mg/dL AST 29 (14-36) U/L ALT 15 (0-35) U/L Alkaline Phosphatase 102 (38-126) U/L Serum Total Protein 6.8 (6.3-8.2) g/dL Albumin 4.1 (3.5-5.0) g/dL Amylase 33 (30-110) U/L Lipase 38 (23-300) U/L Urine Color YELLOW (YELLOW) Urine Appearance SLIGHTLY CLOUDY (CLEAR) Urine pH 6.0 (5-6) Ur Specific [place] 1.015 (1.005-1.025) Urine Protein 100 (Negative) Urine Ketones MODERATE (NEGATIVE) Urine Blood NEGATIVE (0-5) Dwayne/ul Urine Nitrite POSITIVE (NEGATIVE) Urine Bilirubin NEGATIVE (NEGATIVE) Urine Urobilinogen NEGATIVE (0-1) mg/dL Ur Leukocyte Esterase NEGATIVE (NEGATIVE) Urine WBC (Auto) 3-5 (0-5) /HPF Urine RBC (Auto) 3-5 (0-2) /HPF U Epithel Cells (Auto) FEW (FEW) /HPF Urine Bacteria (Auto) FEW (NEGATIVE) /HPF Urine Mucus (Auto) SLIGHT (NEGATIVE) /HPF Urine Culture Reflexed YES (NO) Urine Glucose NEGATIVE (NEGATIVE) mg/dL Urine Opiates Level NEGATIVE (NEGATIVE) Ur Methadone NEGATIVE (NEGATIVE) Urine Barbiturates NEGATIVE (NEGATIVE) Ur Phencyclidine (PCP) NEGATIVE (NEGATIVE) Urine Amphetamine NEGATIVE (NEGATIVE) U Benzodiazepine Level NEGATIVE (NEGATIVE) Urine Cocaine NEGATIVE (NEGATIVE) Urine Marijuana (THC) NEGATIVE (NEGATIVE) 06/28/18 Range/Units 16:09 WBC 11.8 H (4.0-10.5) K/mm3 RBC 4.82 (4.1-5.4) M/mm3 Hgb 15.4 (12.0-16.0) gm/dl Hct 45.1 (35-47) % MCV 93.6 (78-100) fl MCH 32.0 (26-32) pg MCHC 34.1 (32-36) g/dl RDW 14.8 H (11.5-14.0) % Plt Count 492 H (150-450) K/mm3 MPV 9.4 (6-9.5) fl Gran % 62.6 (36.0-66.0) % Eos # (Auto) 0.01 (0-0.5) Absolute Lymphs (auto) 3.50 (1.0-4.6) Absolute Monos (auto) 0.87 (0.0-1.3) Lymphocytes % 29.6 (24.0-44.0) % Monocytes % 7.4 (0.0-12.0) % Eosinophils % 0.1 (0.00-5.0) % Basophils % 0.3 (0.0-0.4) % Absolute Granulocytes 7.41 H (1.4-6.9) Basophils # 0.03 (0-0.4) Sodium (137-145) mmol/L Potassium (3.5-5.1) mmol/L Chloride (98-107) mmol/L Carbon Dioxide (22-30) mmol/L Anion Gap (5-15) MEQ/L BUN (7-17) mg/dL Creatinine (0.52-1.04) mg/dL Estimated GFR ML/MIN Glucose (74-106) mg/dL Calcium (8.4-10.2) mg/dL Total Bilirubin (0.2-1.3) mg/dL AST (14-36) U/L ALT (0-35) U/L Alkaline Phosphatase (38-126) U/L Serum Total Protein (6.3-8.2) g/dL Albumin (3.5-5.0) g/dL Amylase (30-110) U/L Lipase (23-300) U/L Urine Color (YELLOW) Urine Appearance (CLEAR) Urine pH (5-6) Ur Specific [place] (1.005-1.025) Urine Protein (Negative) Urine Ketones (NEGATIVE) Urine Blood (0-5) Dwayne/ul Urine Nitrite (NEGATIVE) Urine Bilirubin (NEGATIVE) Urine Urobilinogen (0-1) mg/dL Ur Leukocyte Esterase (NEGATIVE) Urine WBC (Auto) (0-5) /HPF Urine RBC (Auto) (0-2) /HPF U Epithel Cells (Auto) (FEW) /HPF Urine Bacteria (Auto) (NEGATIVE) /HPF Urine Mucus (Auto) (NEGATIVE) /HPF Urine Culture Reflexed (NO) Urine Glucose (NEGATIVE) mg/dL Urine Opiates Level (NEGATIVE) Ur Methadone (NEGATIVE) Urine Barbiturates (NEGATIVE) Ur Phencyclidine (PCP) (NEGATIVE) Urine Amphetamine (NEGATIVE) U Benzodiazepine Level (NEGATIVE) Urine Cocaine (NEGATIVE) Urine Marijuana (THC) (NEGATIVE) - Progress Progress: improved Progress Note: 06/28/18 19:06 43-year-old white female with history of high blood pressure, gallbladder disease, anxiety, bipolar, bariatric surgery with Mara-en-Y. She arrives with complaint of vomiting and diarrhea for 3 days, she states that she began having diffuse abdominal pain last night. Patient diffusely tender on exam of her abdomen, she has good bowel sounds. Patient's white count is 11.8 hemoglobin 15.4 hematocrit 45.1 chemistry is remarkable for sodium of 139 potassium 3.3 chloride 102 bicarbonate 23 BUN 22 creatinine 0.64 glucose 122 amylase and lipase are normall Patient's CT of the abdomen and pelvis with contrast remarkable for CT findings most concerning for small bowel enteritis there are postoperative changes from prior gastric bypass. There is small bowel wall thickening and mild hyperemia. Patient has been given a total of 200 g of fentanyl. She has been given IV normal saline. She's been giving Zofran and given Phenergan. Patient is feeling better but still not pain-free. I've offered to place the patient on observation however she wants to be discharged. Will go ahead and write for [facility] for this patient Zofran, and place her on Flagyl. Patient states she has an appointment on 3 days from now with her family doctor. I've told her that she needs to contact her family doctor if she is not markedly improved tomorrow. She is to return for acute distress or for severe symptoms. - Departure Time of Disposition: 19:17 Departure Disposition: Home Clinical Impression: small bowel enteritis , History of gastric bypass Abdominal pain Qualifiers: Abdominal location: generalized Qualified Code(s): R10.84 - Generalized abdominal pain Vomiting Qualifiers: Vomiting type: unspecified Vomiting Intractability: non-intractable Nausea presence: with nausea Qualified Code(s): R11.2 - Nausea with vomiting, unspecified Condition: Fair Critical Care Time: No Referrals: ANDREI PETE [Primary Care Provider] - Additional Instructions: Return home, plenty of fluids clear fluids only 24-48 hours if abdominal pain, nausea or vomiting [place] as prescribed. Zofran as prescribed. Flagyl as prescribed. Follow-up with your family doctor call tomorrow if not markedly improved. Return for acute distress or for severe symptoms. Prescriptions: Ondansetron ODT 4 MG [Zofran Odt 4 mg] 4 mg PO Q6H PRN PRN #10 tab.rapdis PRN Reason: nausea and vomiting Hydrocodone/Acetaminophen [[place] 5-325 Tablet] 1 tab PO Q4-6HPRN PRN #12 tablet MDD 6 tablets PRN Reason: Pain Metronidazole 500 mg [Flagyl 500 MG] 500 mg PO TID #30 tablet
[2018-06-28] MEDS: Phenergan 25 MG INJ IV ONE (16:07)
[2018-06-28] MEDS: SUBLIMAZE 100 MCG/2 ML IV ONE ×4 (16:07→19:27)
[2018-06-28] MEDS: Sodium Chloride 0.9% 1000 ML 1,000 ML IV STA (16:07)
[2018-06-28 16:11] LABS: BASOPHIL % 0.3 % (0.0-0.4); Basophil (Absolute #) 0.03 (0-0.4); Eosinophil % 0.1 % (0.00-5.0); Eosinophil (Absolute #) 0.01 (0-0.5); Granulocyte Absolute (ANC) 7.41 (1.4-6.9); Granulocytes % 62.6 % (36.0-66.0); Hematocrit 45.1 % (35-47); Hemoglobin 15.4 gm/dl (12.0-16.0); Lymphocytes % 29.6 % (24.0-44.0); Mean Cell Volume 93.6 fl (78-100); Mean Corpuscular Hgb Concent. 34.1 g/dl (32-36); Mean Platelet Volume 9.4 fl (6-9.5); Monocyte (Absolute #) 0.87 (0.0-1.3); Monocytes % 7.4 % (0.0-12.0); Platelet Count 492 K/mm3 (150-450); Red Blood Count 4.82 M/mm3 (4.1-5.4); Red Cell Distribution Width 14.8 % (11.5-14.0); White Blood Count 11.8 K/mm3 (4.0-10.5)
[2018-06-28 16:27] LABS: ALBUMIN 4.1 g/dL (3.5-5.0); ALKALINE PHOSPHATASE 102 U/L (38-126); AMYLASE 33 U/L (30-110); ANION GAP 16.9 MEQ/L (5-15); BLOOD UREA NITROGEN 22 mg/dL (7-17); CHLORIDE 102 mmol/L (98-107); Carbon Dioxide 23 mmol/L (22-30); Creatinine 1 0.64 mg/dL (0.52-1.04); Glucose 122 mg/dL (74-106); LIPASE 38 U/L (23-300); Potassium 3.3 mmol/L (3.5-5.1); SGOT/AST 29 U/L (14-36); SGPT/ALT 15 U/L (0-35); SODIUM 139 mmol/L (137-145); Total Protein 6.8 g/dL (6.3-8.2)
[2018-06-28] MEDS: Sodium Chloride 0.9% 1000 ML 1,000 ML IV SCH (17:28)
[2018-06-28 17:44] LABS: Appearance SLIGHTLY CLOUDY (CLEAR); Bilirubin NEGATIVE (NEGATIVE); Blood NEGATIVE Ery/ul (0-5); Glucose NEGATIVE (NEGATIVE); Ketones MODERATE (NEGATIVE); Leukocyte Esterase NEGATIVE (NEGATIVE); Nitrite POSITIVE (NEGATIVE); Protein,Urine Dip 100 (Negative); Urobilinogen NEGATIVE mg/dL (0-1)
[2018-06-28 17:53] LABS: Amphetamine,Urine NEGATIVE (NEGATIVE); Barbiturate,Urine NEGATIVE (NEGATIVE); Benzodiazepine,Urine NEGATIVE (NEGATIVE); Cocaine,Urine NEGATIVE (NEGATIVE); Methadone,Urine NEGATIVE (NEGATIVE); Opiate,Urine NEGATIVE (NEGATIVE); PCP,Urine NEGATIVE (NEGATIVE); THC,Urine NEGATIVE (NEGATIVE)
[2018-06-28 17:55] LABS: Specific Gravity 1.015 (1.005-1.025)
[2018-06-28 18:10] VITALS: O2SAT 100
[2018-06-28] MEDS ORDERED: Zofran 4 MG/2 ML VIAL ONE (18:14)
[2018-06-28] MEDS: Zofran 4 MG/2 ML VIAL IV ONE (18:16)
[2018-06-28] MEDS ORDERED: K-LYTE 25 MEQ ONE (19:22)
[2018-06-28] MEDS: K-LYTE 25 MEQ PO ONE (19:28)
[2018-06-28 19:29] VITALS: BP 127/88
[2018-06-28 19:49] VITALS: PULSE 68
--- NOTE | 2018-06-28 20:38 | XRAY ---
Exam: CT of the abdomen and pelvis with IV contrast from 06/28/2018. CTDI: 10.01 Comparison: None. Technique: Post-IV contrast axial images were obtained through the abdomen and pelvis during automated injection of 80 cc of Isovue-370 contrast material. No oral contrast was given. Reconstructed coronal and sagittal images were created and reviewed. Delayed axial images were obtained. Indication: 43-year-old female with abdominal pain associated with nausea/vomiting and diarrhea 5 days; history of prior gastric bypass surgery, cholecystectomy, hysterectomy, and tubal ligation. Findings: The lung bases reveal some scattered calcified granulomas. No infiltrate or posterior pleural effusion is seen. The transverse heart size appears within normal limits. Surgical suture material is seen within the left upper quadrant consistent with the patient's history of prior gastric bypass surgery. There is also some surgical suture material overlying the left midabdomen from the gastric bypass surgery. The liver appears unremarkable. Surgical clips consistent with prior cholecystectomy are seen. The distal common bile duct measures 8.7 mm in diameter on axial image #25 of series #2 which I believe is due to the patient's prior cholecystectomy. The spleen is of normal size and reveals no mass. Scattered calcified granulomas are seen within the spleen. The pancreas and adrenal glands appear unremarkable. Both kidneys function. No renal mass or hydronephrosis is seen. No definite renal calculi are seen. Atherosclerotic vascular calcification is seen within a normal diameter abdominal aorta. No abnormal retroperitoneal lymphadenopathy is seen. No free intraperitoneal air or anterior abdominal wall hernia is seen. I see no evidence of abnormal bowel distention. There is a suggestion of some mild thickening of the mucosal folds of the small bowel within the left midabdomen. Correlate clinically regarding enteritis. I see no findings of acute appendicitis within the right lower quadrant. The uterus is surgically absent. The urinary bladder is only minimally distended. No pelvic soft tissue mass or enlarged pelvic lymph nodes are seen. There is no evidence of free intraperitoneal fluid. There appears to be some air density within the anterior aspect of the urinary bladder, likely due to recent urinary bladder catheterization. The bones reveal bilateral L5 spondylolysis. No significant spondylolisthesis is seen. I believe there is some mild midline disc bulging or protrusion at L4-L5 on axial image #41 and sagittal image #86. No other acute fracture or aggressive bone lesion is seen. Impression: 1. The patient is status post gastric bypass surgery. Some mild mucosal fold thickening is seen within the small bowel projected over the left midabdomen. Correlate clinically regarding enteritis. No bowel obstruction or free intraperitoneal air is seen. 2. The urinary bladder is mostly empty. However, I believe there is some nondependent air within the urinary bladder anteriorly. This is likely due to recent urinary bladder catheterization. 3.. Status post cholecystectomy and hysterectomy. 4. No free intraperitoneal air or free intraperitoneal fluid is seen. 5. Bilateral L5 spondylolysis without evidence of significant spondylolisthesis. There also appears to be either a mild midline disc bulge or protrusion at L4-L5.
== END 2018-06-28 20:03 | disposition home or self-care (01) ==
LOC: ED 15:40
DX: K52.9 Noninfective gastroenteritis and colitis, unspecified (principal); R10.84 Generalized abdominal pain; Z79.899 Other long term (current) drug therapy; Z98.84 Bariatric surgery status
CPT/HCPCS: 36000; 36415; 74177; 80053; 80307; 81001; 82150; 83690; 85025; 87077; 87086; 87186; 93005; 96360; 96361; 96374; 96375; 96376; 99285; J2405; J2550; J3010; A9270-GY

== ENCOUNTER 2018-08-22 13:46 | Inpatient (IN) | payer OTHER ==
[2018-08-22] MEDS ORDERED: Sodium Chloride 0.9% 1000 ML 1,000 ML IV STA (14:00)
[2018-08-22] MEDS ORDERED: DUONEB 0.5-3 MG/3 ml Neb IH ONE ×2 (14:00→14:26)
--- NOTE | 2018-08-22 14:08 | ERPHSYRPT ---
- History of Present Illness Time Seen by Provider: 08/22/18 14:04 Source: patient Exam Limitations: no limitations Patient Subjective Stated Complaint: Pt states "I have been coughing since and my grandkids were diagnosed with influenza A and I cannot take the vaccine because I am allergic and I am afraid that I have the flu." Triage Nursing Assessment: Pt alert and oriented X 3, skin pwd. PT ambulates with an upright steady gait, able to speak in clear full sentences. PT in no apparent respiratory distress. PT has raspy voice, congested. Physician History: 43-year-old white female with history of high blood pressure, gallbladder disease, bipolar, anxiety Patient arrives with complaint of cough shortness of breath symptoms for 3 days she states that she has had a fever at home. She states that she is exposed to kids with the flu. No vomiting no diarrhea States she is taking Tessalon Perles with a not helping her cough. Past medical history includes high blood pressure, gallbladder disease, anxiety , prolonged QT interval Past surgical history includes cholecystectomy, hysterectomy, lumpectomy, uterine ablation, gastric bypass, Mara-en-Y, tonsillectomy and adenoidectomy Social history tobacco use Timing/Duration: day(s) (3 days) Activities at Onset: none Severity of Dyspnea-Max: moderate Severity of Dyspnea-Current: moderate Possible Cause: unknown cause Modifying Factors: Improves With: coughing. Worsens With: nothing, albuterol inhaler, albuterol nebulizer, deep breath, exertion, lying down, oxygen Associated Symptoms: constant, cough, fever, No intermittent, No anxiety, No chest pain/discomfort, No edema, No insomnia, No loss of appetite, No lightheadedness, No wheezing, No weakness, No ankle swelling, No chills, No hemoptysis, No calf pain, No dizziness, No heaviness, No heart racing, No lightheadedness, No leg swelling, No muscle spasms feet, No muscle spasms hands , No painful breathing, No productive cough, No sweating, No tightness, No tingling face International travel in last 2 weeks: No Allergies/Adverse Reactions: influenza virus vaccine, specific [influenza virus vacc,specific] Allergy ( Severe, Verified 06/28/18 15:43) Swelling morphine Allergy (Severe, Verified 06/28/18 15:43) Tightness in Chest propoxyphene napsylate [From Darvocet-N] Allergy (Intermediate, Verified 15:43) Rash clarithromycin [From Biaxin] Adverse Reaction (Mild, Verified 06/28/18 15:43) Nausea Home Medications: Hydrochlorothiazide 25 mg [hydroDIURIL 25 MG] 25 mg PO DAILY 01/13/16 [ History] Multivitamin [Multivitamins] 2 each PO DAILY 02/27/17 [History] Mv,Iron,Mins/Folic Acid/Biotin [Hair, Skin & Nails Softgel] 3 tab PO DAILY 02/27 [History] Pregabalin [Lyrica 100Mg] 100 mg PO BID 08/22/18 [History] Quetiapine Fumarate [Seroquel Xr] 400 mg PO HS 08/22/18 [History] Hx Tetanus, Diphtheria Vaccination/Date Given: Yes Hx Influenza Vaccination/Date Given: No Hx Pneumococcal Vaccination/Date Given: No Immunizations Up to Date: Yes - Review of Systems Constitutional: Fever, Weakness, No Chills, No Fatigue, No Lethargy, No Malaise , No Night Sweats, No Weight Loss Eyes: No Symptoms Ears, Nose, & Throat: No Symptoms, No Ear Pain, No Ear Discharge, No Hearing Changes, No Tinnitus, No Nose Pain, No Nose Congestion, No Nose Discharge, No Sinus Drainage, No Epistaxis, No Mouth Pain, No Mouth Swelling (does not really give any), No Loose Teeth, No Throat Pain, No Throat Swelling, No Hoarse, No Painful Swallowing, No Snoring Respiratory: Cough, Dyspnea, No Cyanosis, No Dyspnea on Exertion (LOCK), No Stridor, No Wheezing Cardiac: No Chest Pain, No Edema, No Syncope Abdominal/Gastrointestinal: No Abdominal Pain, No Nausea, No Vomiting, No Diarrhea Genitourinary Symptoms: No Dysuria Musculoskeletal: No Back Pain, No Neck Pain Skin: No Rash Neurological: No Dizziness, No Focal Weakness, No Sensory Changes Psychological: No Symptoms Endocrine: No Symptoms All Other Systems: Reviewed and Negative - Past Medical History Pertinent Past Medical History: Yes Neurological History: No Pertinent History ENT History: No Pertinent History Cardiac History: Hypertension Respiratory History: No Pertinent History Endocrine Medical History: No Pertinent History Musculoskeletal History: No Pertinent History GI Medical History: Gallbladder Disease Psycho-Social History: Anxiety, Bipolar, Depression Female Reproductive Disorders: No Pertinent History Other Medical History: UTERINE ABLASION, BARIATRIC SURGERY-RUE AND Y,. past hx of prolonged QT interval - Past Surgical History Past Surgical History: Yes Cardiac: No Pertinent History Respiratory: No Pertinent History Gastrointestinal: Cholecystectomy, Other Female Surgical History: Hysterectomy, Lumpectomy, Other Other Surgical History: UTERINE ABLASION, GASTRIC BYPASS-RUE AN Y. t&a - Social History Smoking Status: Current every day smoker How long have you smoked: 1.5 years Exposure to second hand smoke: Yes Alcohol Use: Socially Drug Use: none Patient Lives Alone: No - Female History Hx Last Menstrual Period: hysterectomy Hx Now: No - Nursing Vital Signs Nursing Vital Signs: Initial Vital Signs Temperature 97.8 F 08/22/18 13:49 Pulse Rate 75 08/22/18 13:49 Respiratory Rate 18 08/22/18 13:49 Blood Pressure 93/55 08/22/18 13:49 O2 Sat by Pulse Oximetry 90 L 08/22/18 13:49 Pain Scale Pain Intensity 2 - Physical Exam General Appearance: no apparent distress, alert Eye Exam: PERRL/EOMI Ears, Nose, Throat Exam: hearing grossly normal, normal ENT inspection, normal pharynx, No abnormal TM (R), No sinus pain/drainage, No hearing decreased, No nasal congestion, No pharyngeal erythema, No tonsillar exudate, No tonsillar swelling Neck Exam: normal inspection, supple Respiratory Exam: airway intact, diminished breath sounds, wheezing (few scattered wheezes), No chest tenderness, No respiratory distress Cardiovascular/Chest Exam: normal heart sounds, regular rate/rhythm Abdominal/Gastrointestinal Exam: soft, No tenderness, No distention, No mass Extremity Exam: non-tender, normal range of motion, normal inspection, no calf tenderness, no pedal edema Peripheral Pulses Exam: dorsalis-pedis (R): 2+, dorsalis-pedis (L): 2+ Neurologic Exam: alert, oriented x 3, cooperative, bureau director II-XII nml as tested, sensation nml, No motor deficits Skin Exam: normal color, warm, No dry SpO2 Interpretation: normal (91%) SpO2: 91 - Course Nursing assessment & vital signs reviewed: Yes EKG Interpreted by Me: RATE (56 bpm), Sinus Rob, NORMAL AXIS, Other (EKG sinus bradycardia, 72 bpm, normal axis, no acute ST or T wave changes, no acute changes as compared to June 28, 2018) Ordered Tests: Active Orders 24 hr Category Date Time Status Lieutenant/Deputy STAT Care 08/22/18 14:01 Active EKG-ER Only STAT Care 08/22/18 14:22 Active Pulse Oximetry (ED) STAT Care 08/22/18 14:00 Active CHEST 1 VIEW (PORTABLE) Stat Exams 08/22/18 14:01 Taken BLOOD CULTURE Stat Lab 08/22/18 14:30 Received CBC W DIFF Stat Lab 08/22/18 14:15 Completed CMP Stat Lab 08/22/18 14:15 Completed CULTURE,SPUTUM Stat Lab 08/22/18 15:32 Uncollected Lactic Acid Stat Lab 08/22/18 14:00 Completed Manual Differential NC Stat Lab 08/22/18 14:15 Completed VENOUS BLOOD GAS Stat Lab 08/22/18 14:00 Completed Peak Expiratory Flow Rate ONCE RT 08/22/18 14:30 Completed Respiratory Therapy Assessment DAILY RT 08/22/18 14:30 Completed Medication Summary Generic Name Dose Route Start Last Admin Trade Name Freq PRN Reason Stop Dose Admin Potassium Chloride 100 mls @ 50 mls/hr 08/22/18 15:30 08/22/18 16:07 Potassium Chloride 20 Meq In Water 100ml IV 08/22/18 19:29 50 mls/hr Q2H ARELIS Administration Sodium Chloride 1,000 mls @ 100 mls/hr 08/22/18 15:30 08/22/18 16:08 Sodium Chloride 0.9% 1000 Ml IV 09/21/18 15:29 100 mls/hr .Q10H ARELIS Administration Discontinued Medications Generic Name Dose Route Start Last Admin Trade Name Freq PRN Reason Stop Dose Admin Albuterol/Ipratropium 3 ml 08/22/18 14:00 08/22/18 14:44 Duoneb 0.5-3 Mg/3 Ml Neb IH 08/22/18 14:01 3 ml STAT ONE Administration Albuterol/Ipratropium Confirm 08/22/18 14:26 Duoneb 0.5-3 Mg/3 Ml Neb Administered 08/22/18 14:27 Dose 3 ml IH .STK-MED ONE Sodium Chloride 1,000 mls @ 999 mls/hr 08/22/18 14:00 08/22/18 16:39 Sodium Chloride 0.9% 1000 Ml IV 08/22/18 15:00 Infused .Q1H1M STA Infusion Sodium Chloride Confirm 08/22/18 14:09 Sodium Chloride 0.9% 1000 Ml Administered 08/22/18 14:10 Dose 1,000 mls @ ud .ROUTE .STK-MED ONE Ceftriaxone Sodium/Dextrose 1 g in 50 mls @ 100 mls/hr 08/22/18 15:32 16:15 Rocephin 1 Gm-D5w 50 Ml Bag IV 08/22/18 16:01 Infused STAT STA Infusion Ceftriaxone Sodium/Dextrose Confirm 08/22/18 15:37 Rocephin 1 Gm-D5w 50 Ml Bag Administered 08/22/18 15:38 Dose 1 g in 50 mls @ ud IV .STK-MED ONE Oseltamivir Phosphate 75 mg 08/22/18 15:26 08/22/18 15:39 Tamiflu 75mg Capsule PO 08/22/18 15:27 75 mg STAT ONE Administration Oseltamivir Phosphate Confirm 08/22/18 15:36 Tamiflu 75mg Capsule Administered 08/22/18 15:37 Dose 75 mg PO .STK-MED ONE Lab/Rad Data: Laboratory Result Diagrams 08/22/18 14:15 08/22/18 14:15 Laboratory Results 08/22/18 08/22/18 08/22/18 Range/Units 14:15 14:15 14:15 WBC 3.4 L (4.0-10.5) K/mm3 RBC 3.78 L (4.1-5.4) M/mm3 Hgb 12.2 (12.0-16.0) gm/dl Hct 36.6 (35-47) % MCV 96.8 (78-100) fl MCH 32.2 H (26-32) pg MCHC 33.3 (32-36) g/dl RDW 14.3 H (11.5-14.0) % Plt Count 189 (150-450) K/mm3 MPV 10.7 H (6-9.5) fl pO2/FiO2 Ratio % VBG pH (7.32-7.42) VBG pCO2 at Pat Temp (42-55) mm/Hg VBG pO2 at Pat Temp (25-40) mm/Hg VBG HCO3 (22-28) meq/L VBG O2 Sat (Con[place]ita) (95-100) VBG Base Excess (-2.0-2.0) VBG Hemoglobin VBG Carboxyhemoglobin (0.0-6.9) % T HGB POC Potassium (3.5-5.1) Sodium 138 (137-145) mmol/L Potassium 2.3 L* (3.5-5.1) mmol/L Chloride 96 L (98-107) mmol/L Carbon Dioxide 32 H (22-30) mmol/L Anion Gap 11.6 (5-15) MEQ/L BUN 14 (7-17) mg/dL Creatinine 0.65 (0.52-1.04) mg/dL Estimated GFR > 60.0 ML/MIN Glucose 84 (74-106) mg/dL Lactic Acid (0.4-2.0) Calcium 7.8 L (8.4-10.2) mg/dL Total Bilirubin 0.60 (0.2-1.3) mg/dL AST 84 H (14-36) U/L ALT 51 H (0-35) U/L Alkaline Phosphatase 111 (38-126) U/L Serum Total Protein 5.5 L (6.3-8.2) g/dL Albumin 2.8 L (3.5-5.0) g/dL Influenza Type A Ag POSITIVE (NEGATIVE) Influenza Type B Ag NEGATIVE (NEGATIVE) RSV (PCR) NEGATIVE (Negative) 08/22/18 Range/Units 14:00 WBC (4.0-10.5) K/mm3 RBC (4.1-5.4) M/mm3 Hgb (12.0-16.0) gm/dl Hct (35-47) % MCV (78-100) fl MCH (26-32) pg MCHC (32-36) g/dl RDW (11.5-14.0) % Plt Count (150-450) K/mm3 MPV (6-9.5) fl pO2/FiO2 Ratio 21.0 % VBG pH 7.45 H (7.32-7.42) VBG pCO2 at Pat Temp 51 (42-55) mm/Hg VBG pO2 at Pat Temp 25 (25-40) mm/Hg VBG HCO3 35.4 H* (22-28) meq/L VBG O2 Sat (Conchita) 48.3 L (95-100) VBG Base Excess 9.8 H (-2.0-2.0) VBG Hemoglobin 12.6 VBG Carboxyhemoglobin 5.4 (0.0-6.9) % T HGB POC Potassium 2.2 L* (3.5-5.1) Sodium (137-145) mmol/L Potassium (3.5-5.1) mmol/L Chloride (98-107) mmol/L Carbon Dioxide (22-30) mmol/L Anion Gap (5-15) MEQ/L BUN (7-17) mg/dL Creatinine (0.52-1.04) mg/dL Estimated GFR ML/MIN Glucose (74-106) mg/dL Lactic Acid 1.2 (0.4-2.0) Calcium (8.4-10.2) mg/dL Total Bilirubin (0.2-1.3) mg/dL AST (14-36) U/L ALT (0-35) U/L Alkaline Phosphatase (38-126) U/L Serum Total Protein (6.3-8.2) g/dL Albumin (3.5-5.0) g/dL Influenza Type A Ag (NEGATIVE) Influenza Type B Ag (NEGATIVE) RSV (PCR) (Negative) - Progress Progress: improved Air Movement: fair Progress Note: 08/22/18 16:47 This is a 43-year-old white female with history of high blood pressure, gallbladder disease, bipolar depression, anxiety, prolonged QT interval Patient arrives with complaint of feeling short of breath symptoms since Patient states that she was exposed to her children who have the flu. She states she has been feeling tired week no vomiting patient states that she has been coughing Patient has been noted to have a pulse ox around 90% On physical examination she had some faint bilateral wheezes. Chest x-ray on this person remarkable for patchy left-sided infiltrate. Patient with a positive influenza A Patient given albuterol treatment, IV normal saline, patient noted to have a potassium of 2.3 blood cultures have been ordered and Rocephin 1 g IV has been ordered Patient's EKG sinus bradycardia 56 bpm normal axis no acute ST or T wave changes Patient's chemistry sodium 138 potassium low at 2.3 chloride 96 bicarbonate 32 BUN is 14 creatinine 0.65 glucose is 84 patient with normal anion gap of 11.6 patient was mildly increased SGPT of 84 alkaline phosphatase is 51 patient positive for influenza A Patient's lactate is 1.2 Venous gases pH 7.45 PCO2 51 CBC White blood cell 3.4 hemoglobin 12.2 hematocrit 36.6 platelets [address] carlin in [place] however she wishes to stay at this hospital. I contacted Dr. Cummins who is elderly companion. She requested that the patient be placed on ICU continued to receive IV normal saline at 150 mL per hour she is to receive 2K riders of 20 mEq each. We are to continue albuterol treatments, tomorrow., Rocephin and begin Zithromax and continue Tamiflu. - Departure Time of Disposition: 17:11 Departure Disposition: Observation Clinical Impression: Cough, Shortness of breath, Influenza A Pneumonia Qualifiers: Pneumonia type: due to unspecified organism Laterality: left Lung location: unspecified part of lung Qualified Code(s): J18.9 - Pneumonia, unspecified organism Condition: Fair Critical Care Time: No Referrals: ANDREI CARLIN [Primary Care Provider] -
[2018-08-22] MEDS ORDERED: Sodium Chloride 0.9% 1000 ML 1,000 ML ONE ×2 (14:09→15:37)
[2018-08-22 14:18] LABS: Lactic Acid 1.2 (0.4-2.0); VBG BASE EXCESS 9.8 (-2.0-2.0); VBG CARBOXYHEMOGLOBIN 5.4 % T HGB (0.0-6.9); VBG HCO3- 35.4 meq/L (22-28); VBG HEMOGLOBIN 12.6; VBG O2 SATURATION 48.3 (95-100); VBG POTASSIUM 2.2 (3.5-5.1); VBG pH 7.45 (7.32-7.42)
[2018-08-22 14:21] LABS: Hematocrit 36.6 % (35-47); Hemoglobin 12.2 gm/dl (12.0-16.0); Mean Cell Volume 96.8 fl (78-100); Mean Corpuscular Hgb Concent. 33.3 g/dl (32-36); Mean Platelet Volume 10.7 fl (6-9.5); Platelet Count 189 K/mm3 (150-450); Red Blood Count 3.78 M/mm3 (4.1-5.4); Red Cell Distribution Width 14.3 % (11.5-14.0); White Blood Count 3.4 K/mm3 (4.0-10.5)
[2018-08-22 14:48] LABS: Mean Corpuscular Hemoglobin 32.2 pg (26-32)
[2018-08-22 15:11] LABS: INFLUENZA A POSITIVE (NEGATIVE); INFLUENZA B NEGATIVE (NEGATIVE); RESPIRATORY SYNCTIAL VIRUS NEGATIVE (Negative)
[2018-08-22 15:14] LABS: ALBUMIN 2.8 g/dL (3.5-5.0); ALKALINE PHOSPHATASE 111 U/L (38-126); ANION GAP 11.6 MEQ/L (5-15); BLOOD UREA NITROGEN 14 mg/dL (7-17); CHLORIDE 96 mmol/L (98-107); Calcium 7.8 mg/dL (8.4-10.2); Carbon Dioxide 32 mmol/L (22-30); Creatinine 1 0.65 mg/dL (0.52-1.04); Glucose 84 mg/dL (74-106); SGOT/AST 84 U/L (14-36); SGPT/ALT 51 U/L (0-35); SODIUM 138 mmol/L (137-145); Total Protein 5.5 g/dL (6.3-8.2)
[2018-08-22 15:24] LABS: Potassium 2.3 mmol/L (3.5-5.1)
[2018-08-22] MEDS ORDERED: Tamiflu 75MG Capsule PO ONE ×2 (15:26→15:36)
[2018-08-22] MEDS ORDERED: Sodium Chloride 0.9% 1000 ML 1,000 ML IV SCH ×2 (15:30→19:00)
[2018-08-22] MEDS ORDERED: ROCEPHIN 1 Gm-D5w 50 ml Bag** 1 G/50 ML IVPB IV STA (15:32)
[2018-08-22] MEDS ORDERED: POTASSIUM CHLORIDE 20 mEq IN WATER 100ML 200 ML IV ONE (15:37)
[2018-08-22] MEDS ORDERED: ROCEPHIN 1 Gm-D5w 50 ml Bag** 1 G/50 ML IVPB IV ONE (15:37)
[2018-08-22] MEDS: POTASSIUM CHLORIDE 20 mEq IN WATER 100ML 100 ML IV SCH ×2 (16:07→18:06)
[2018-08-22 17:13] LABS: ANISOCYTOSIS 2+; BAND 10 % (0.0-2.0); Lymphocytes 16 % (24-44); Monocyte 7 % (0.0-12.0); Neutrophils 67 % (36.0-66.0); Platelet Estimate NORMAL (NORMAL); Poikilocytosis 1+; Total Cells Counted 100
[2018-08-22 17:14] LABS: Polychromasia 1+; Targert Cells RARE
[2018-08-22] MEDS ORDERED: solu-MEDROL 125 MG IV ONE (18:57)
--- NOTE | 2018-08-22 19:51 | XRAY ---
Indication: Short of breath and cough. Comparison: February 27, 2017. Portable chest demonstrates new left mid to lower lung infiltrate without consolidation/large effusion. Remaining heart, lungs, and bony thorax unremarkable again with incidental calcified granulomas.
[2018-08-22] MEDS ORDERED: MAG-OX 400 ONE (21:57)
[2018-08-22] MEDS ORDERED: ENOXAPARIN SODIUM SQ ONE (21:58)
[2018-08-22] MEDS ORDERED: Zithromax 500 MG/ 250 ML NaCl Premix 500 MG/250 ML IVPB IV SCH (22:00)
[2018-08-22] MEDS: Tessalon Perles 100 MG PO SCH (22:11)
[2018-08-22] MEDS: LYRICA 100MG PO SCH (22:11)
[2018-08-22] MEDS: Sodium Chloride 0.9% 1000 ML 1,000 ML IV SCH (22:13)
[2018-08-22] MEDS: Robitussin 100 MG/5 ML PO PRN (22:14)
[2018-08-22] MEDS: Tamiflu 75MG Capsule PO SCH (22:14)
[2018-08-22] MEDS ORDERED: PROVENTIL 2.5 MG/3 ML NEB IH ONE (23:36)
[2018-08-22] MEDS: PROVENTIL 2.5 MG/3 ML NEB IH SCH (23:44)
[2018-08-23] MEDS: solu-MEDROL 125 MG IV SCH ×5 (00:44→23:17)
[2018-08-23] MEDS: Klor Con 10 MEQ PO SCH ×3 (02:06→09:32)
[2018-08-23] MEDS ORDERED: PROVENTIL 2.5 MG/3 ML NEB IH ONE ×2 (03:32→06:53)
[2018-08-23] MEDS: PROVENTIL 2.5 MG/3 ML NEB IH SCH ×2 (03:35→06:53)
[2018-08-23 05:51] LABS: Hematocrit 33.2 % (35-47); Mean Cell Volume 97.1 fl (78-100); Mean Corpuscular Hgb Concent. 33.1 g/dl (32-36); Mean Platelet Volume 10.9 fl (6-9.5); Platelet Count 160 K/mm3 (150-450); Red Blood Count 3.42 M/mm3 (4.1-5.4); Red Cell Distribution Width 14.3 % (11.5-14.0)
[2018-08-23 06:00] LABS: Mean Corpuscular Hemoglobin 32.1 pg (26-32); White Blood Count 1.9 K/mm3 (4.0-10.5)
[2018-08-23 06:02] LABS: ALBUMIN 2.6 g/dL (3.5-5.0); ALKALINE PHOSPHATASE 110 U/L (38-126); ANION GAP 10.8 MEQ/L (5-15); BLOOD UREA NITROGEN 11 mg/dL (7-17); CHLORIDE 102 mmol/L (98-107); Calcium 7.4 mg/dL (8.4-10.2); Carbon Dioxide 28 mmol/L (22-30); Creatinine 1 0.43 mg/dL (0.52-1.04); Glucose 180 mg/dL (74-106); Potassium 3.1 mmol/L (3.5-5.1); SGOT/AST 57 U/L (14-36); SGPT/ALT 42 U/L (0-35); SODIUM 138 mmol/L (137-145); Total Protein 5.3 g/dL (6.3-8.2)
[2018-08-23] MEDS ORDERED: DUONEB 0.5-3 MG/3 ml Neb IH ONE (06:44)
[2018-08-23 08:04] LABS: BAND 2 % (0.0-2.0); Lymphocytes 30 % (24-44); Monocyte 3 % (0.0-12.0); Neutrophils 65 % (36.0-66.0); Platelet Estimate NORMAL (NORMAL); Total Cells Counted 100
--- NOTE | 2018-08-23 08:55 | XRAY ---
Indication: Wheezing, short of breath, and elevated d-dimer. Multiple contiguous axial images obtained through the chest using 80 cc Isovue 370 contrast and PE protocol. Comparison: None There is good opacification of the pulmonary arteries to include the lobar and segmental branches. No filling defect or pulmonary embolus. Heart is not enlarged. Aorta is normal in course and caliber. Mediastinal and bilateral hilar calcified nodes. No pathologic mediastinal/hilar lymphadenopathy. Examination of the lung parenchyma demonstrates diffuse left lung and right middle/lower lobe airspace disease. Multifocal left lung patchy organizing consolidations and also small bilateral effusions, right greater than left. Scattered small bilateral calcified granulomas. Bony thorax intact. Limited upper abdomen demonstrates a few hepatic/splenic calcified granulomas and 13 cm splenomegaly. Impression: 1. Negative pulmonary embolus. 2. Diffuse bilateral airspace disease with small bilateral effusions as detailed. 3. Incidental splenomegaly and evidence for old granulomatous disease. Comment: Preliminary interpretation was made by [id number]. No critical discrepancy. CT DI 10.00
--- NOTE | 2018-08-23 09:09 | PCM.HP ---
History of Present Illness - Chief Complaint Chief Complaint: fever, chills, shortness of breath for 2-3 days History of Present Illness: is a 43 year old female with history of high blood pressure, gallbladder disease, bipolar, anxiety Patient arrives with complaint of cough shortness of breath symptoms for 3 days she states that she has had a fever at home. She states that she is exposed to kids with the flu. No vomiting no diarrhea States she is taking Tessalon Perles with a not helping her cough. - Review of Systems Constitutional: Fever, Chills Eyes: No Symptoms Ears, Nose, & Throat: No Symptoms Respiratory: No Cough, No Short Of Breath Cardiac: No Chest Pain, No Edema, No Syncope Abdominal/Gastrointestinal: No Abdominal Pain, No Nausea, No Vomiting, No Diarrhea Genitourinary Symptoms: No Dysuria Musculoskeletal: No Back Pain, No Neck Pain Skin: No Rash Neurological: No Dizziness, No Focal Weakness, No Sensory Changes Psychological: No Symptoms Endocrine: No Symptoms Hematologic/Lymphatic: No Symptoms Immunological/Allergic: No Symptoms Medications & Allergies Home Medications: Home Medication List Hydrochlorothiazide 25 mg [hydroDIURIL 25 MG] 0.5 tab PO DAILY 01/13/16 [ History Confirmed 08/22/18] Multivitamin [Multivitamins] 2 each PO DAILY 02/27/17 [History Confirmed ] Albuterol Common Canister [Proventil Common Canister] 2 puff IH Q4HPRN PRN 08/22/18 [History Confirmed 08/22/18] Calcium Carb, Citrate/Vit D3 [Calcium + D3 ER Tablet] 1 each PO DAILY 08/22/18 [ History Confirmed 08/22/18] Estradiol 1 mg [Estrace 1 mg] 1 mg PO DAILY 08/22/18 [History Confirmed ] Ferrous Sulfate [Iron] 325 mg PO DAILY 08/22/18 [History Confirmed 08/22/18] Loratadine 10 mg [Claritin 10 mg] 10 mg PO DAILY 08/22/18 [History Confirmed 08/22/18] Pregabalin [Lyrica 100Mg] 100 mg PO BID 08/22/18 [History Confirmed 08/22/18] Quetiapine Fumarate [Seroquel Xr] 800 mg PO HS 08/22/18 [History Confirmed 08/22] Temazepam [Restoril] 30 mg PO HS 08/22/18 [History Confirmed 08/22/18] Allergies/Adverse Reactions: Allergies Allergy/AdvReac Type Severity Reaction Status Date / Time influenza virus vaccine, Allergy Severe Swelling Verified 08/22/18 18:39 specific [influenza virus vacc,specific] morphine Allergy Severe Tightness Verified 08/22/18 18:39 in Chest propoxyphene napsylate Allergy Intermediate Rash Verified 08/22/18 18:39 [From Darvocet-N] clarithromycin [From Biaxin] AdvReac Mild Nausea Verified 08/22/18 18:39 - Past Medical History Past Medical History: Yes Neurological History: No Pertinent History ENT History: No Pertinent History Cardiac History: Hypertension Respiratory History: No Pertinent History Endocrine Medical History: No Pertinent History Musculoskelatal History: No Pertinent History GI Medical History: Gallbladder Disease Pyscho-Social History: Anxiety, Bipolar, Depression Reproductive Disorders: No Pertinent History Comment: UTERINE ABLASION, BARIATRIC SURGERY-RUE AND Y,. past hx of prolonged QT interval - Female History Hx Last Menstrual Period: hysterectomy Are you now?: No - Past Surgical History Past Surgical History: Yes Cardiac History: No Pertinent History Respiratory Surgery: No Pertinent History GI Surgical History: Cholecystectomy, Other Female Surgical History: Hysterectomy, Lumpectomy, Other Other Surgical History: UTERINE ABLASION, GASTRIC BYPASS-RUE AN Y. t&a - Social History Smoking Status: Current every day smoker How long have you smoked: 1.5 years Exposure to second hand smoke: Yes Alcohol: None Drug Use: none - Physical Exam Vital Signs: Vital Signs - 24 hr Temp Pulse Resp BP Pulse Ox 08/23/18 08:00 98.7 F 48 L 18 101/61 92 L 08/23/18 06:55 48 L 18 92 L 08/23/18 04:25 98.0 F 62 16 87/55 93 L 08/23/18 03:36 96 08/23/18 00:28 98.4 F 59 L 16 97/56 93 L 08/22/18 23:45 91 L 08/22/18 19:25 67 20 96/52 93 L 08/22/18 19:00 94 L 08/22/18 18:31 99.0 F 61 20 95/56 70 L 08/22/18 17:47 67 18 96/58 93 L 08/22/18 17:11 91 L 08/22/18 15:47 97.8 F 62 18 91/57 80 L 08/22/18 14:56 90 20 93 L 08/22/18 14:55 97.8 F 65 18 85/54 88 L 08/22/18 14:30 90 L 08/22/18 13:49 97.8 F 75 18 93/55 91 L Oxygen-Last 24 hours O2 Percentage 5 Liters = 40% O2 Percentage 4 Liters = 36% O2 Percentage 4 Liters = 36% O2 Percentage 3 Liters = 32% O2 Percentage 6 Liters = 44% General Appearance: no apparent distress, alert Neurologic Exam: alert, oriented x 3, cooperative, normal mood/affect, nml cerebellar function, nml station & gait, sensation nml, No motor deficits Eye Exam: PERRL/EOMI, eyes nml inspection Ears, Nose, Throat Exam: normal ENT inspection, TMs normal, pharynx normal, moist mucous membranes Neck Exam: normal inspection, non-tender, supple, full range of motion Respiratory Exam: normal breath sounds, lungs clear, No respiratory distress Cardiovascular Exam: regular rate/rhythm, normal heart sounds, normal peripheral pulses Gastrointestinal/Abdomen Exam: soft, normal bowel sounds, No tenderness, No mass Back Exam: normal inspection, normal range of motion, No CVA tenderness, No vertebral tenderness Extremity Exam: normal inspection, normal range of motion, pelvis stable Skin Exam: normal color, warm, dry, No rash Lymphatic Exam: No adenopathy Results - Labs Lab/Micro Results: Lab Results-Last 24 Hours 08/22/18 08/22/18 08/22/18 Range/Units 14:00 14:15 14:15 WBC 3.4 L (4.0-10.5) K/mm3 RBC 3.78 L (4.1-5.4) M/mm3 Hgb 12.2 (12.0-16.0) gm/dl Hct 36.6 (35-47) % MCV 96.8 (78-100) fl MCH 32.2 H (26-32) pg MCHC 33.3 (32-36) g/dl RDW 14.3 H (11.5-14.0) % Plt Count 189 (150-450) K/mm3 MPV 10.7 H (6-9.5) fl Eosinophils % (0.00-5.0) % Segmented Neutrophils 67 H (36.0-66.0) % Band Neutrophils 10 H (0.0-2.0) % Lymphocytes (Manual) 16 L (24-44) % Monocytes (Manual) 7 (0.0-12.0) % Platelet Estimate NORMAL (NORMAL) RBC Morphology ABNORMAL Polychromasia 1+ Poikilocytosis 1+ Anisocytosis 2+ Target Cells RARE D-Dimer (215-500) ng/mL pO2/FiO2 Ratio 21.0 % VBG pH 7.45 H (7.32-7.42) VBG pCO2 at Pat Temp 51 (42-55) mm/Hg VBG pO2 at Pat Temp 25 (25-40) mm/Hg VBG HCO3 35.4 H* (22-28) meq/L VBG O2 Sat (Conchita) 48.3 L (95-100) VBG Base Excess 9.8 H (-2.0-2.0) VBG Hemoglobin 12.6 VBG Carboxyhemoglobin 5.4 (0.0-6.9) % T HGB POC Potassium 2.2 L* (3.5-5.1) Sodium 138 (137-145) mmol/L Potassium 2.3 L* (3.5-5.1) mmol/L Chloride 96 L (98-107) mmol/L Carbon Dioxide 32 H (22-30) mmol/L Anion Gap 11.6 (5-15) MEQ/L BUN 14 (7-17) mg/dL Creatinine 0.65 (0.52-1.04) mg/dL Estimated GFR > 60.0 ML/MIN Glucose 84 (74-106) mg/dL Lactic Acid 1.2 (0.4-2.0) Calcium 7.8 L (8.4-10.2) mg/dL Magnesium (1.6-2.3) mg/dL Total Bilirubin 0.60 (0.2-1.3) mg/dL AST 84 H (14-36) U/L ALT 51 H (0-35) U/L Alkaline Phosphatase 111 (38-126) U/L Serum Total Protein 5.5 L (6.3-8.2) g/dL Albumin 2.8 L (3.5-5.0) g/dL Influenza Type A Ag (NEGATIVE) Influenza Type B Ag (NEGATIVE) RSV (PCR) (Negative) 08/22/18 08/22/18 08/22/18 Range/Units 14:15 18:52 20:45 WBC (4.0-10.5) K/mm3 RBC (4.1-5.4) M/mm3 Hgb (12.0-16.0) gm/dl Hct (35-47) % MCV (78-100) fl MCH (26-32) pg MCHC (32-36) g/dl RDW (11.5-14.0) % Plt Count (150-450) K/mm3 MPV (6-9.5) fl Eosinophils % (0.00-5.0) % Segmented Neutrophils (36.0-66.0) % Band Neutrophils (0.0-2.0) % Lymphocytes (Manual) (24-44) % Monocytes (Manual) (0.0-12.0) % Platelet Estimate (NORMAL) RBC Morphology Polychromasia Poikilocytosis Anisocytosis Target Cells D-Dimer 508 H* (215-500) ng/mL pO2/FiO2 Ratio % VBG pH (7.32-7.42) VBG pCO2 at Pat Temp (42-55) mm/Hg VBG pO2 at Pat Temp (25-40) mm/Hg VBG HCO3 (22-28) meq/L VBG O2 Sat (Conchita) (95-100) VBG Base Excess (-2.0-2.0) VBG Hemoglobin VBG Carboxyhemoglobin (0.0-6.9) % T HGB POC Potassium (3.5-5.1) Sodium (137-145) mmol/L Potassium (3.5-5.1) mmol/L Chloride (98-107) mmol/L Carbon Dioxide (22-30) mmol/L Anion Gap (5-15) MEQ/L BUN (7-17) mg/dL Creatinine (0.52-1.04) mg/dL Estimated GFR ML/MIN Glucose (74-106) mg/dL Lactic Acid (0.4-2.0) Calcium (8.4-10.2) mg/dL Magnesium 1.8 (1.6-2.3) mg/dL Total Bilirubin (0.2-1.3) mg/dL AST (14-36) U/L ALT (0-35) U/L Alkaline Phosphatase (38-126) U/L Serum Total Protein (6.3-8.2) g/dL Albumin (3.5-5.0) g/dL Influenza Type A Ag POSITIVE (NEGATIVE) Influenza Type B Ag NEGATIVE (NEGATIVE) RSV (PCR) NEGATIVE (Negative) 08/23/18 08/23/18 08/23/18 Range/Units 01:05 05:10 05:10 WBC 1.9 L* (4.0-10.5) K/mm3 RBC 3.42 L (4.1-5.4) M/mm3 Hgb 11.0 L (12.0-16.0) gm/dl Hct 33.2 L (35-47) % MCV 97.1 (78-100) fl MCH 32.1 H (26-32) pg MCHC 33.1 (32-36) g/dl RDW 14.3 H (11.5-14.0) % Plt Count 160 (150-450) K/mm3 MPV 10.9 H (6-9.5) fl Eosinophils % 0.0 (0.00-5.0) % Segmented Neutrophils 65 (36.0-66.0) % Band Neutrophils 2 (0.0-2.0) % Lymphocytes (Manual) 30 (24-44) % Monocytes (Manual) 3 (0.0-12.0) % Platelet Estimate NORMAL (NORMAL) RBC Morphology NORMAL Polychromasia Poikilocytosis Anisocytosis Target Cells D-Dimer (215-500) ng/mL pO2/FiO2 Ratio % VBG pH (7.32-7.42) VBG pCO2 at Pat Temp (42-55) mm/Hg VBG pO2 at Pat Temp (25-40) mm/Hg VBG HCO3 (22-28) meq/L VBG O2 Sat (Conchita) (95-100) VBG Base Excess (-2.0-2.0) VBG Hemoglobin VBG Carboxyhemoglobin (0.0-6.9) % T HGB POC Potassium (3.5-5.1) Sodium 138 (137-145) mmol/L Potassium 2.8 L* D 3.1 L (3.5-5.1) mmol/L Chloride 102 (98-107) mmol/L Carbon Dioxide 28 (22-30) mmol/L Anion Gap 10.8 (5-15) MEQ/L BUN 11 (7-17) mg/dL Creatinine 0.43 L (0.52-1.04) mg/dL Estimated GFR > 60.0 ML/MIN Glucose 180 H (74-106) mg/dL Lactic Acid (0.4-2.0) Calcium 7.4 L (8.4-10.2) mg/dL Magnesium (1.6-2.3) mg/dL Total Bilirubin 0.30 (0.2-1.3) mg/dL AST 57 H (14-36) U/L ALT 42 H (0-35) U/L Alkaline Phosphatase 110 (38-126) U/L Serum Total Protein 5.3 L (6.3-8.2) g/dL Albumin 2.6 L (3.5-5.0) g/dL Influenza Type A Ag (NEGATIVE) Influenza Type B Ag (NEGATIVE) RSV (PCR) (Negative) 08/23/18 Range/Units 05:10 WBC (4.0-10.5) K/mm3 RBC (4.1-5.4) M/mm3 Hgb (12.0-16.0) gm/dl Hct (35-47) % MCV (78-100) fl MCH (26-32) pg MCHC (32-36) g/dl RDW (11.5-14.0) % Plt Count (150-450) K/mm3 MPV (6-9.5) fl Eosinophils % (0.00-5.0) % Segmented Neutrophils (36.0-66.0) % Band Neutrophils (0.0-2.0) % Lymphocytes (Manual) (24-44) % Monocytes (Manual) (0.0-12.0) % Platelet Estimate (NORMAL) RBC Morphology Polychromasia Poikilocytosis Anisocytosis Target Cells D-Dimer (215-500) ng/mL pO2/FiO2 Ratio % VBG pH (7.32-7.42) VBG pCO2 at Pat Temp (42-55) mm/Hg VBG pO2 at Pat Temp (25-40) mm/Hg VBG HCO3 (22-28) meq/L VBG O2 Sat (Conchita) (95-100) VBG Base Excess (-2.0-2.0) VBG Hemoglobin VBG Carboxyhemoglobin (0.0-6.9) % T HGB POC Potassium (3.5-5.1) Sodium (137-145) mmol/L Potassium (3.5-5.1) mmol/L Chloride (98-107) mmol/L Carbon Dioxide (22-30) mmol/L Anion Gap (5-15) MEQ/L BUN (7-17) mg/dL Creatinine (0.52-1.04) mg/dL Estimated GFR ML/MIN Glucose (74-106) mg/dL Lactic Acid (0.4-2.0) Calcium (8.4-10.2) mg/dL Magnesium 1.8 (1.6-2.3) mg/dL Total Bilirubin (0.2-1.3) mg/dL AST (14-36) U/L ALT (0-35) U/L Alkaline Phosphatase (38-126) U/L Serum Total Protein (6.3-8.2) g/dL Albumin (3.5-5.0) g/dL Influenza Type A Ag (NEGATIVE) Influenza Type B Ag (NEGATIVE) RSV (PCR) (Negative) - Radiology Impressions Radiology Exams & Impressions: Radiology Procedures Category Date Time Status CHEST 1 VIEW (PORTABLE) Stat Exams 08/22/18 14:01 Completed CHEST WITH CONTRAST [CT] Urgent Exams 08/22/18 20:37 Completed - Other Procedures and Tests Respiratory Therapy 08/22/18 19:12 Smoking Cessation Education ONCE 08/22/18 21:02 Respiratory Therapy Assessment DAILY 08/22/18 21:05 Oxygen Nasal Cannula 2 lpm 08/23/18 07:00 Peak Expiratory Flow Rate ONCE Assessment/Plan (1) Pneumonia Current Visit: Yes Status: Acute Qualifiers: Pneumonia type: due to influenza A virus Laterality: left Lung location: unspecified part of lung Qualified Code(s): J10.00 - Influenza due to other identified influenza virus with unspecified type of pneumonia Assessment & Plan: Last Vital Signs Temp 98.7 F 08/23/18 08:00 Pulse 48 L 08/23/18 08:00 Resp 18 08/23/18 08:00 BP 101/61 08/23/18 08:00 Pulse Ox 92 L 08/23/18 08:00 Allergies influenza virus vaccine, specific [influenza virus vacc,specific] Allergy ( Severe, Verified 08/22/18 18:39) Swelling morphine Allergy (Severe, Verified 08/22/18 18:39) Tightness in Chest propoxyphene napsylate [From Darvocet-N] Allergy (Intermediate, Verified 18:39) Rash clarithromycin [From Biaxin] Adverse Reaction (Mild, Verified 08/22/18 18:39) Nausea Active Medications Albuterol/Ipratropium (Duoneb 0.5-3 Mg/3 Ml Neb) 3 ml IH Q4HRT [facility] Stop: 09/22/18 10:59 Benzonatate (Tessalon Perles 100 Mg) 100 mg PO TID [facility] Stop: 09/21/18 21:59 Last Admin: 08/22/18 22:11 Dose: 100 mg Calcium Carbonate (Calcium 500mg W/Vit D Tablet) 1 tab PO DAILY [facility] Stop: 09/22/18 09:59 Enoxaparin Sodium (Enoxaparin Sodium) 40 mg SQ QPM [facility] Stop: 09/22/18 21:59 Ferrous Sulfate (Feosol 325 Mg) 325 mg PO DAILY [facility] Stop: 09/22/18 09:59 Fluticasone Propionate (Flonase Nasal) 16 gm NS DAILY [facility] Stop: 09/22/18 09:59 Guaifenesin (Robitussin 100 Mg/5 Ml) 5 ml PO Q6H PRN PRN PRN Reason: COUGH Stop: 09/21/18 20:21 Last Admin: 08/22/18 22:14 Dose: 5 ml Ceftriaxone Sodium/Dextrose (Rocephin 1 Gm-D5w 50 Ml Bag) 1 g in 50 mls @ 100 mls/hr IV Q24H10 [facility] Stop: 09/22/18 09:59 Sodium Chloride (Sodium Chloride 0.9% 1000 Ml) 1,000 mls @ 50 mls/hr IV .Q20H [facility] Stop: 09/21/18 18:02 Last Admin: 08/22/18 22:13 Dose: 150 mls/hr Azithromycin (Zithromax 500 Mg/ 250 Ml Nacl Premix) 500 mg in 250 mls @ 250 mls /hr IV QPM [facility] Stop: 09/21/18 21:59 Methylprednisolone Sodium Succinate (Solu-Medrol 125 Mg) 60 mg IV Q6H [facility] Stop: 09/22/18 00:00 Last Admin: 08/23/18 06:32 Dose: 60 mg Oseltamivir Phosphate (Tamiflu 75mg Capsule) 75 mg PO BID [facility] Stop: 08/27/18 21:59 Last Admin: 08/22/18 22:14 Dose: 75 mg Potassium Chloride (Klor Con 10 Meq) 40 meq PO Q4H [facility] Stop: 08/23/18 10:10 Last Admin: 08/23/18 06:32 Dose: 40 meq Pregabalin (Lyrica 100mg) 100 mg PO BID [facility] Stop: 09/21/18 21:59 Last Admin: 08/22/18 22:11 Dose: 100 mg Intake & Output 08/22/18 08/23/18 11:59 11:59 Intake Total 1634 Output Total 1150 Balance 484 Weight 61 kg Orders 08/22/18 19:12 [facility] Gluer/Discharge Plan ROUTINE Nutritional Admission Screen once Smoking Cessation Education ONCE 08/22/18 20:22 Guaifenesin 100 mg/5 ml [Robitussin 100 MG/5 ML] 5 ml PO Q6H PRN PRN 08/22/18 22:00 Benzonatate 100 mg [Tessalon Perles 100 MG] 100 mg PO TID 08/23/18 10:00 Fluticasone Propionate [Flonase NASAL] 16 gm NS DAILY 08/23/18 11:00 Albuterol/Ipratropium 3ml Neb* [DUONEB 0.5-3 MG/3 ml Neb] 3 ml IH Q4HRT 08/23/18 22:00 Enoxaparin Sodium [Enoxaparin Sodium] 40 mg SQ QPM Lab Tests 08/22/18 08/22/18 08/22/18 14:00 14:15 14:15 WBC 3.4 L RBC 3.78 L Hgb 12.2 Hct 36.6 MCV 96.8 MCH 32.2 H MCHC 33.3 RDW 14.3 H Plt Count 189 MPV 10.7 H Eosinophils % Segmented Neutrophils 67 H Band Neutrophils 10 H Lymphocytes (Manual) 16 L Monocytes (Manual) 7 Platelet Estimate NORMAL RBC Morphology ABNORMAL Polychromasia 1+ Poikilocytosis 1+ Anisocytosis 2+ Target Cells RARE D-Dimer pO2/FiO2 Ratio 21.0 VBG pH 7.45 H VBG pCO2 at Pat Temp 51 VBG pO2 at Pat Temp 25 VBG HCO3 35.4 H* VBG O2 Sat (Conchita) 48.3 L VBG Base Excess 9.8 H VBG Hemoglobin 12.6 VBG Carboxyhemoglobin 5.4 POC Potassium 2.2 L* Sodium 138 Potassium 2.3 L* Chloride 96 L Carbon Dioxide 32 H Anion Gap 11.6 BUN 14 Creatinine 0.65 Estimated GFR > 60.0 Glucose 84 Lactic Acid 1.2 Calcium 7.8 L Magnesium Total Bilirubin 0.60 AST 84 H ALT 51 H Alkaline Phosphatase 111 Serum Total Protein 5.5 L Albumin 2.8 L Influenza Type A Ag Influenza Type B Ag RSV (PCR) 08/22/18 08/22/18 08/22/18 14:15 18:52 20:45 WBC RBC Hgb Hct MCV MCH MCHC RDW Plt Count MPV Eosinophils % Segmented Neutrophils Band Neutrophils Lymphocytes (Manual) Monocytes (Manual) Platelet Estimate RBC Morphology Polychromasia Poikilocytosis Anisocytosis Target Cells D-Dimer 508 H* pO2/FiO2 Ratio VBG pH VBG pCO2 at Pat Temp VBG pO2 at Pat Temp VBG HCO3 VBG O2 Sat (Conchita) VBG Base Excess VBG Hemoglobin VBG Carboxyhemoglobin POC Potassium Sodium Potassium Chloride Carbon Dioxide Anion Gap BUN Creatinine Estimated GFR Glucose Lactic Acid Calcium Magnesium 1.8 Total Bilirubin AST ALT Alkaline Phosphatase Serum Total Protein Albumin Influenza Type A Ag POSITIVE Influenza Type B Ag NEGATIVE RSV (PCR) NEGATIVE 08/23/18 08/23/18 08/23/18 01:05 05:10 05:10 WBC 1.9 L* RBC 3.42 L Hgb 11.0 L Hct 33.2 L MCV 97.1 MCH 32.1 H MCHC 33.1 RDW 14.3 H Plt Count 160 MPV 10.9 H Eosinophils % 0.0 Segmented Neutrophils 65 Band Neutrophils 2 Lymphocytes (Manual) 30 Monocytes (Manual) 3 Platelet Estimate NORMAL RBC Morphology NORMAL Polychromasia Poikilocytosis Anisocytosis Target Cells D-Dimer pO2/FiO2 Ratio VBG pH VBG pCO2 at Pat Temp VBG pO2 at Pat Temp VBG HCO3 VBG O2 Sat (Conchita) VBG Base Excess VBG Hemoglobin VBG Carboxyhemoglobin POC Potassium Sodium 138 Potassium 2.8 L* D 3.1 L Chloride 102 Carbon Dioxide 28 Anion Gap 10.8 BUN 11 Creatinine 0.43 L Estimated GFR > 60.0 Glucose 180 H Lactic Acid Calcium 7.4 L Magnesium Total Bilirubin 0.30 AST 57 H ALT 42 H Alkaline Phosphatase 110 Serum Total Protein 5.3 L Albumin 2.6 L Influenza Type A Ag Influenza Type B Ag RSV (PCR) 08/23/18 05:10 WBC RBC Hgb Hct MCV MCH MCHC RDW Plt Count MPV Eosinophils % Segmented Neutrophils Band Neutrophils Lymphocytes (Manual) Monocytes (Manual) Platelet Estimate RBC Morphology Polychromasia Poikilocytosis Anisocytosis Target Cells D-Dimer pO2/FiO2 Ratio VBG pH VBG pCO2 at Pat Temp VBG pO2 at Pat Temp VBG HCO3 VBG O2 Sat (Conchita) VBG Base Excess VBG Hemoglobin VBG Carboxyhemoglobin POC Potassium Sodium Potassium Chloride Carbon Dioxide Anion Gap BUN Creatinine Estimated GFR Glucose Lactic Acid Calcium Magnesium 1.8 Total Bilirubin AST ALT Alkaline Phosphatase Serum Total Protein Albumin Influenza Type A Ag Influenza Type B Ag RSV (PCR) Code(s): J18.9 - PNEUMONIA, UNSPECIFIED ORGANISM (2) Influenza A Current Visit: Yes Status: Acute Code(s): J10.1 - FLU DUE TO OTH IDENT INFLUENZA VIRUS W OTH RESP MANIFEST
[2018-08-23] MEDS: LYRICA 100MG PO SCH ×2 (09:32→21:10)
[2018-08-23] MEDS: FEOSOL 325 MG PO SCH ×2 (09:33→09:44)
[2018-08-23] MEDS: ROCEPHIN 1 Gm-D5w 50 ml Bag** 1 G/50 ML IVPB IV SCH (09:33)
[2018-08-23] MEDS: Tessalon Perles 100 MG PO SCH ×3 (09:33→21:11)
[2018-08-23] MEDS: Tamiflu 75MG Capsule PO SCH ×2 (09:33→21:11)
[2018-08-23] MEDS: Flonase NASAL NS SCH (09:33)
[2018-08-23] MEDS ORDERED: VIT D3 PO SCH (10:00)
[2018-08-23] MEDS ORDERED: CALCIUM CARB CITRATE PO SCH (10:00)
[2018-08-23] MEDS ORDERED: Calcium 500MG W/Vit D Tablet PO SCH (10:00)
[2018-08-23] MEDS ORDERED: TYLENOL EXTRA STRENGTH 500 MG PO PRN (10:14)
[2018-08-23] MEDS: Robitussin 100 MG/5 ML PO PRN (10:29)
[2018-08-23] MEDS: DUONEB 0.5-3 MG/3 ml Neb IH SCH ×4 (11:15→23:07)
[2018-08-23] MEDS: NORCO 5/325 MG PO PRN ×2 (13:18→19:23)
[2018-08-23] MEDS: Sodium Chloride 0.9% 1000 ML 1,000 ML IV SCH (16:29)
[2018-08-23] MEDS ORDERED: MAG-OX 400 PO ONE (20:27)
[2018-08-23] MEDS: Restoril 15 MG PO SCH (21:10)
[2018-08-23] MEDS: Calcium 500MG W/Vit D Tablet PO SCH (21:10)
[2018-08-23] MEDS: ENOXAPARIN SODIUM SQ SCH (21:10)
[2018-08-23] MEDS: Zithromax 500 MG/ 250 ML NaCl Premix 500 MG/250 ML IVPB IV SCH (21:11)
[2018-08-23] MEDS ORDERED: ENOXAPARIN SODIUM SQ SCH (22:00)
[2018-08-24] MEDS: DUONEB 0.5-3 MG/3 ml Neb IH SCH ×6 (03:37→23:58)
[2018-08-24] MEDS: solu-MEDROL 125 MG IV SCH ×2 (05:00→16:58)
[2018-08-24] MEDS: NORCO 5/325 MG PO PRN ×3 (08:06→20:18)
--- NOTE | 2018-08-24 09:29 | PCM.NOTE ---
Date and Time: 08/24/18927 Subjective Assessment: doing better - Review of Systems Constitutional: No Fever, No Chills Eyes: No Symptoms Ears, Nose, & Throat: No Symptoms Respiratory: Cough, Orthopnea, Short Of Breath Cardiac: No Chest Pain, No Edema, No Syncope Abdominal/Gastrointestinal: No Abdominal Pain, No Nausea, No Vomiting, No Diarrhea Genitourinary Symptoms: No Dysuria Musculoskeletal: No Back Pain, No Neck Pain Skin: No Rash Neurological: No Dizziness, No Focal Weakness, No Sensory Changes Psychological: No Symptoms Endocrine: No Symptoms Hematologic/Lymphatic: No Symptoms Immunological/Allergic: No Symptoms Objective Exam General Appearance: no apparent distress, alert Neurologic Exam: alert, oriented x 3, cooperative, normal mood/affect, nml cerebellar function, sensation nml, No motor deficits Skin Exam: normal color, warm, dry Eye Exam: PERRL, EOMI, eyes nml inspection Ears, Nose, Throat Exam: normal ENT inspection, pharynx normal, moist mucous membranes Neck Exam: normal inspection, non-tender, supple, full range of motion Respiratory Exam: normal breath sounds, lungs clear, No respiratory distress Cardiovascular Exam: regular rate/rhythm, normal heart sounds Gastrointestinal/Abdomen Exam: soft, No tenderness, No mass Extremity Exam: normal inspection, normal range of motion Back Exam: normal inspection, normal range of motion, No CVA tenderness, No vertebral tenderness Pelvic Exam: deferred Rectal Exam: deferred OBJECTIVE DATA Vital Signs: Vital Signs - 24 hr Temp Pulse Resp BP Pulse Ox 08/24/18 08:00 98.2 F 68 18 132/84 100 08/24/18 04:00 97.8 F 62 16 115/74 96 08/24/18 03:37 54 L 18 97 08/24/18 00:00 16 08/23/18 23:45 97.8 F 67 14 94/65 94 L 08/23/18 23:07 67 14 94 L 08/23/18 20:00 98.5 F 66 18 105/65 95 08/23/18 18:29 74 18 95 08/23/18 16:00 98.7 F 63 16 117/75 94 L 08/23/18 14:57 54 L 18 94 L 08/23/18 12:00 98.5 F 50 L 20 126/85 92 L 08/23/18 11:16 55 L 18 92 L Oxygen-Last 24 hours O2 Percentage 3 Liters = 32% O2 Percentage 5 Liters = 40% O2 Percentage 5 Liters = 40% O2 Percentage 5 Liters = 40% O2 Percentage 5 Liters = 40% O2 Percentage 5 Liters = 40% Pain Assessment - Last Documented Pain Intensity 5 Pain Scale Used 0-10 Pain Scale Intake and Output: Intake & Output 08/21/18 08/22/18 08/23/18 08/24/18 11:59 11:59 11:59 11:59 Intake Total 1874 2276 Output Total 1650 300 Balance 224 1975 Weight 61 kg Radiology Exams: Radiology Procedures Category Date Time Status CHEST 1 VIEW (PORTABLE) Stat Exams 08/22/18 14:01 Completed CHEST 2 VIEWS (PA AND LAT) Routine Exams 08/25/18 06:00 Ordered CHEST WITH CONTRAST [CT] Urgent Exams 08/22/18 20:37 Completed Multi-Disciplinary Progress Notes: Multi-Disciplinary Progress Notes 08/23/18 12:38 Case Management Note by Nida Anne PT CALLED THIS NURSE INTO THE ROOM FOR A HIGH PITCHED SQUEALING IN THE ROOM. ON INVESTIGATION IT WAS THE OXYGEN. TURNED DOWN A BIT FROM 5 LITERS TO 4 LITERS AND THE SQUEALING STOPPED. NOTIFIED RESPIRATORY AND PRIMARY NURSE, SILKE. RT WILL BE DOWN TO CHECK, ALSO. Initialized on 08/23/18 12:38 - END OF NOTE Assessment/Plan (1) Pneumonia Current Visit: Yes Status: Acute Qualifiers: Pneumonia type: due to influenza A virus Laterality: left Lung location: unspecified part of lung Qualified Code(s): J10.00 - Influenza due to other identified influenza virus with unspecified type of pneumonia Code(s): J18.9 - PNEUMONIA, UNSPECIFIED ORGANISM (2) Influenza A Current Visit: Yes Status: Acute Code(s): J10.1 - FLU DUE TO OTH IDENT INFLUENZA VIRUS W OTH RESP MANIFEST
[2018-08-24] MEDS: Tamiflu 75MG Capsule PO SCH ×2 (10:47→21:21)
[2018-08-24] MEDS: FEOSOL 325 MG PO SCH (10:47)
[2018-08-24] MEDS: ROCEPHIN 1 Gm-D5w 50 ml Bag** 1 G/50 ML IVPB IV SCH (10:47)
[2018-08-24] MEDS: Tessalon Perles 100 MG PO SCH ×3 (10:48→21:21)
[2018-08-24] MEDS: Flonase NASAL NS SCH (10:48)
[2018-08-24] MEDS: LYRICA 100MG PO SCH ×2 (10:48→21:21)
[2018-08-24 12:35] LABS: INFLUENZA A POSITIVE (NEGATIVE); INFLUENZA B NEGATIVE (NEGATIVE); RESPIRATORY SYNCTIAL VIRUS NEGATIVE (Negative)
[2018-08-24] MEDS: Sodium Chloride 0.9% 1000 ML 1,000 ML IV SCH (14:33)
[2018-08-24] MEDS: Calcium 500MG W/Vit D Tablet PO SCH (21:21)
[2018-08-24] MEDS: Restoril 15 MG PO SCH (21:21)
[2018-08-24] MEDS: ENOXAPARIN SODIUM SQ SCH (21:21)
[2018-08-24] MEDS: Zithromax 500 MG/ 250 ML NaCl Premix 500 MG/250 ML IVPB IV SCH (21:22)
[2018-08-25] MEDS: DUONEB 0.5-3 MG/3 ml Neb IH SCH ×2 (03:48→07:50)
[2018-08-25 06:03] LABS: Hematocrit 33.2 % (35-47); Hemoglobin 10.6 gm/dl (12.0-16.0); Mean Cell Volume 99.1 fl (78-100); Mean Corpuscular Hemoglobin 31.6 pg (26-32); Mean Corpuscular Hgb Concent. 31.9 g/dl (32-36); Mean Platelet Volume 11.4 fl (6-9.5); Platelet Count 185 K/mm3 (150-450); Red Blood Count 3.35 M/mm3 (4.1-5.4); Red Cell Distribution Width 14.9 % (11.5-14.0); White Blood Count 7.2 K/mm3 (4.0-10.5)
[2018-08-25 06:06] LABS: ANION GAP 9.3 MEQ/L (5-15); BLOOD UREA NITROGEN 14 mg/dL (7-17); CHLORIDE 110 mmol/L (98-107); Calcium 7.8 mg/dL (8.4-10.2); Carbon Dioxide 26 mmol/L (22-30); Creatinine 1 0.42 mg/dL (0.52-1.04); Glucose 92 mg/dL (74-106); Potassium 3.6 mmol/L (3.5-5.1); SODIUM 142 mmol/L (137-145)
[2018-08-25] MEDS: solu-MEDROL 125 MG IV SCH (07:08)
[2018-08-25 07:43] VITALS: BP 147/87
[2018-08-25] MEDS: NORCO 5/325 MG PO PRN (08:05)
[2018-08-25 08:12] VITALS: PULSE 76; O2SAT 97
--- NOTE | 2018-08-25 09:29 | XRAY ---
Indication: Viral pneumonia. Comparison: Radiograph and CT chest August 22, 2018. PA/lateral chest demonstrates mild clearing of the previous left lung and CT proven right lung infiltrates which still persists. New small bibasilar effusions and stable calcified granulomas. Remaining heart and lungs unremarkable.
[2018-08-25] MEDS: ROCEPHIN 1 Gm-D5w 50 ml Bag** 1 G/50 ML IVPB IV SCH (10:20)
[2018-08-25] MEDS: Flonase NASAL NS SCH (10:20)
[2018-08-25] MEDS: LYRICA 100MG PO SCH (10:20)
[2018-08-25] MEDS: Tamiflu 75MG Capsule PO SCH (10:20)
[2018-08-25] MEDS: FEOSOL 325 MG PO SCH (10:20)
[2018-08-25] MEDS: Tessalon Perles 100 MG PO SCH (10:20)
== END 2018-08-25 11:00 | disposition home or self-care (01) | DRG 195 ==
LOC: ED 13:46 → MED SURG 18:01 → OBSVTOIN 18:56
PROVIDERS: ADMIT Internal Medicine; ATTEND General Practice
DX: J09.X1 Influenza due to identified novel influenza A virus with pneumonia (principal); E87.6 Hypokalemia; Z79.899 Other long term (current) drug therapy; I10 Essential (primary) hypertension
CPT/HCPCS: 36000; 36415; 71045; 71046; 71260; 80048; 80053; 82805; 83605; 83735; 84132; 85025; 85027; 85379; 87040; 87631; 93005; 93041; 94150; 94640; 94762; 96360; 96365; 96367; 96374; 99285; J0456; J0696; J1650; J2930; J3480; J7609; A9270-GY